=== PATIENT | male | born 1975 | race Caucasian/White ===

== ENCOUNTER 2016-06-27 14:29 | Inpatient (IN) | payer OTHER ==
[~2016-06-27] VITALS: Ht 182.9 cm; Wt 145.2 kg
[~2016-06-27 14:29] MED LIST: FLUOXETINE HCL40 M1 PO; LOSARTAN-HCTZ1 EACH PO; TOPROL XL50 M1 PO
--- NOTE | 2016-06-27 14:47 | ED GENERAL ADULT ---
History of Present Illness General Chief Complaint: General Adult Stated Complaint: BIBA, HEMOPTYSIS Source: patient, old records, EMS Exam Limitations: no limitations Vital Signs & Intake/Output Vital Signs & Intake/Output Vital Signs Date Time Temp Pulse Resp B/P Pulse O2 O2 Flow FiO2 Ox Delivery Rate 06/27 1746 96.5 67 18 90/40 94 Room Air 06/27 1601 96.6 74 18 118/58 96 Room Air 06/27 1514 64 18 103/47 95 Room Air 06/27 1432 96.0 69 12 94/39 95 Room Air Allergies Coded Allergies: No Known Allergies (03/29/16) Reconcile Medications Fluoxetine HCl 40 MG CAPSULE 1 CAP PO QAM DIRECTED (Reported) Losartan/Hydrochlorothiazide (Losartan-Hctz 100-12.5 MG Tab) 100 MG-12.5 MG TABLET 1 TAB PO DAILY DIRECTED (Reported) Metoprolol Succ XL (Toprol Xl) 50 MG TAB 1 TAB PO DAILY BP (Reported) Triage Note: PT TO ROOM5 BIBA FROM HOME FOR JAUNDICE, BRIGHT RED BLOOD IN STOOL, INTERMITTENT NAUSEA, VOMITING BLOOD [id number]. PT ARRIVED AA0x3, WEAK, +JAUNDICE, C/O LOWER ABD PAIN 3/10, ABDOMEN FIRM/DISTENDED, BRUISES TO U/L EXTREMITIES, BILAT LE EDEMA. WRITTEN BY REEMA CHAVEZ PT DENIES CHEST PAIN,SOB. BP 87/58 MUNUALLY. MD ADAM AT BEDSIDE FOR PT EVAL. Triage Nurses Notes Reviewed? yes HPI: PT WAS ADMITTED TO THE ICU LAST NOVEMEBER AFTER HE WAS JAUNDICE SECONDARY TO DRIKING ALCOHOL. HE STOPPED DRINKING AND THE JAUNDICE RESOLVED IN APRIL. HE BEGAN DRINKING AGAIN BUT "NOT MUCH." 3 WEEKS AGO HE NOTICED THAT HE WAS BRUSING VERY EASILY AND HIS LEGS BEGAN TO SWELL. 2 WEEKS AGO, HE BEGAN TO HAVE INTERMITTENT BRBPR. HE STATES THAT SOMETIMES HE WENT AND IT WAS NORMAL AND OTEHR TIMES IT WAS BRB. HE HAS HAD INCREASING WEAKNESS TO THE POINT THAT HE HAS BEEN SLEEPING ON HIS COUCH BECAUSE IT IS CLOSER TO THE BATHROOM. HE NOTICED THAT HE BEGAN TURNING YELLOW AGAIN. TODAY HE BECAME NAUSEOUS AND HAD 1 EPISODE OF BRB VOMITUS. PT CALLED 911 AND WAS BROUGHT IN FOR EVAL. Past History Travel History Traveled to [place] past 21 day No Medical History Any Pertinent Medical History? 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 No Review of Systems Review of Systems Constitutional: Reports: see HPI, weakness. EENTM: Reports: no symptoms. Respiratory: Reports: no symptoms. Cardiovascular: Reports: no symptoms. GI: Reports: see HPI, nausea, bloody stool, vomiting. Genitourinary: Reports: no symptoms. Musculoskeletal: Reports: see HPI. Skin: Reports: see HPI, jaundice. Neurological/Psychological: Reports: no symptoms. Hematologic/Endocrine: Reports: no symptoms. Immunologic/Allergic: Reports: no symptoms. All Other Systems: Reviewed and Negative Physical Exam Physical Exam General Appearance: well developed/nourished, alert, awake, anxious, severe distress Head: atraumatic Eyes: Bilateral: PERRL, EOMI, other (ICTERIC SCERLA). Ears, Nose, Throat: normal pharynx, normal ENT inspection, hearing grossly normal, DRIED BLOOD ON TEETH AND LIPS Neck: normal inspection, supple, full range of motion, JVD Respiratory: normal breath sounds, chest non-tender, no respiratory distress, lungs clear Cardiovascular: regular rate/rhythm, normal peripheral pulses Gastrointestinal: normal bowel sounds, soft, non-tender, +ASCITIES Rectal: BLACK STOOL, HEME POSITIVE Back: normal inspection, normal range of motion Extremities: normal inspection, normal capillary refill, pedal edema Neurologic/Psych: no motor/sensory deficits, awake, alert, oriented x 3, normal mood/affect Skin: jaundice Lymphatic: no anterior cervical regina Core Measures ACS in differential dx? No CVA/TIA Diagnosis: No Severe Sepsis Present: No Septic Shock Present: No Progress Differential Diagnoses I considered the following diagnoses in my evaluation of the patient: [HEAPTIC FAILURE, ASCITIES, SBP, GI BLEED, ESOPHAGEAL VARICIES, ANEMIA, SEPSIS] Plan of Care: Orders Procedure Date/time Status Nothing by Mouth 06/28 B Active CBC WITHOUT DIFFERENTIAL 06/28 2100 Active BASIC ELECTROLYTES PLUS BUN&CR 06/27 2100 Active FRESH FROZEN PLASMA 06/27 1817 Active Pathway - chart 06/27 1736 Active House Staff 06/27 1736 Active Patient Data 06/27 1736 Active Code Status 06/27 1736 Active Patient Data 06/27 1645 Active Admit to inpatient 06/27 1637 Active LEUKOCYTE POOR (PACKED CELLS) 06/27 1629 Active Baum, Insertion/Removal/Asses 06/27 1627 Active CULTURE,URINE 06/27 1627 Active URINE LYTES, SPOT 06/27 1627 Active URINALYSIS 06/27 1446 Active TROPONIN LEVEL 06/27 1446 Complete PARTIAL THROMBOPLASTIN TIME 06/27 1446 Complete PROTHROMBIN TIME 06/27 1446 Complete ETHANOL 06/27 1446 Complete COMPREHENSIVE METABOLIC PANEL 06/27 1446 Complete CBC WITHOUT DIFFERENTIAL 06/27 1446 Complete EKG 06/27 1446 Active TYPE & SCREEN (NOT X-MATCH) 06/27 1446 Active VTE Mechanical Prophylaxis 06/27 UNK Active Current Medications Sig/Vladimir Start time Last Medication Dose Stop Time Status Admin Fluoxetine HCl 40 MG DAILY 06/28 1000 UNVr (Prozac) Hydrochlorothiazide 12.5 MG DAILY 06/28 1000 UNVr (Hydrodiuril) Losartan Potassium 100 MG DAILY 06/28 1000 UNVr (Cozaar) Metoprolol Succinate 50 MG DAILY 06/28 1000 UNVr (Toprol Xl) Trimethobenzamide HCl 200 MG 4 TIMES/DAY PRN 06/27 1815 UNVr (Tigan) Lorazepam 2 MG Q6 06/27 1800 UNVr (Ativan) Lorazepam 0 Q1P PRN 06/27 1745 UNVr (Ativan) Albumin Human 25 GM Q8 06/27 1728 UNVr (Plasbumin) Laboratory Tests 06/27/16 1500: Anion Gap 20 H, Estimated GFR 16 L, BUN/Creatinine Ratio 6.8 L, Glucose 73, Calcium 8.2 L, Total Bilirubin 32.3 H, AST 344 H, ALT 135 H, Alkaline Phosphatase 150 H, Troponin I < 0.01, Total Protein 7.6, Albumin 2.5 L, Globulin 5.1 H, Albumin/Globulin Ratio 0.5 L, PT 48.4 *H, INR 4.68 *H, APTT 79 H, CBC w Diff NO MAN DIFF REQ, RBC 1.67 L, MCV 118.7 H, MCH 41.8 H, RDW 22.6 H, MPV 7.7, Gran % 75.3 H, Lymphocytes % 8.5 L, Monocytes % 15.4 H, Eosinophils % 0.3, Basophils % 0.5, Absolute Granulocytes 11.1 H, Absolute Lymphocytes 1.2, Absolute Monocytes 2.3 H, Absolute Eosinophils 0, Absolute Basophils 0.1, PUBS MCHC 35.2, Serum Alcohol 90.0 Microbiology 06/27 162 URINE ROUT: Urine Culture - ORD Diagnostic Imaging: Viewed by Me: Radiology Read, Ultrasound. Discussed w/RAD: Radiology Read, Ultrasound. Radiology Impression: PATIENT: JULIANNE VELA PRESENT AGE: 41 PATIENT ACCOUNT NO: [id number] : 75 LOCATION: [facility] ORDERING PHYSICIAN: LYNNE MEDINA MD SERVICE DATE: 06/27/16 EXAM TYPE: US - US-RENAL/KIDNEY EXAMINATION: US RETROPERITONEAL COMPLETE (RENAL) CLINICAL INFORMATION: Acute renal failure. Evaluate for hydronephrosis. COMPARISON: CT scan of the abdomen and pelvis dated 03/29/2016. TECHNIQUE: Real- time imaging of the kidneys and bladder. FINDINGS: RIGHT KIDNEY: 11.9 x 6.5 x 7.5 cm (SAG x AP x TRV). The kidney is normal in size, contour, and echogenicity. Renal cortical thickness is normal. No calculi or focal parenchymal lesions. No hydronephrosis. LEFT KIDNEY: 10.7 x 5.8 x 4.7 cm (SAG x AP x TRV). The kidney is suboptimally seen due to patient's body habitus but appears normal in size, contour, and echogenicity. Renal cortical thickness is normal. No calculi or focal parenchymal lesions. No hydronephrosis. BLADDER: Not seen. OTHER: Large volume ascites is now seen in all 4 quadrants of the abdomen. IMPRESSION: 1. Left kidney suboptimally assessed. Overall, both kidneys appear unremarkable. 2. Bladder not seen. 3. Interval development of large volume ascites. DICTATED BY: MARTINA GALVAN,MODESTA [place] DATE/TIME DICTATED:02/25/17 / 1747 GERMINATION WORKER:YASMIN DATE/TIME TRANSCRIBED:06/27/161746 CONFIDENTIAL, DO NOT COPY WITHOUT APPROPRIATE AUTHORIZATION. <Electronically signed in Other Vendor System> SIGNED BY: MODESTA MACK MD 06/27/16 175 CXR Impression: PATIENT: JULIANNE VELA PRESENT AGE : 41 PATIENT ACCOUNT NO: [id number] : 75 LOCATION: [facility] ORDERING PHYSICIAN: LYNNE MEDINA MD SERVICE DATE: 06/27/16 EXAM TYPE: RAD - XRY-PORTABLE CHEST XRAY EXAMINATION: XR PORTABLE CHEST CLINICAL INFORMATION: Shortness of breath. Pneumonia. COMPARISON: CT scan of the abdomen and pelvis dated 03/29/2016. TECHNIQUE: Portable AP view of the chest was obtained. FINDINGS: The cardiomediastinal silhouette is within normal limits in size. Lungs bilaterally are hypoexpanded with bibasilar opacities seen, likely related to subsegmental atelectasis. Slight elevation of the right hemidiaphragm is seen. No pulmonary edema, effusion or pneumothorax is seen. Bony structures are unremarkable. IMPRESSION: Low lung volumes with bibasilar opacities, most likely related to subsegmental atelectasis. Superimposed pneumonia, especially in the right lung base cannot be entirely excluded but is felt to be less likely. Close clinical correlation is requested. DICTATED BY: MODESTA MACK MD DATE/TIME DICTATED:06/27/161531 GERMINATION WORKER:YASMIN DATE/TIME TRANSCRIBED:1531 CONFIDENTIAL, DO NOT COPY WITHOUT APPROPRIATE AUTHORIZATION. < Electronically signed in Other Vendor System> SIGNED BY: MODESTA MACK MD 06/27/16 1540 Initial ED EKG: NSR, nonspecific ST T wave chg Prior EKG: unchanged Rhythm Strip: normal sinus rhythm Comments: D/W DR. RANDOLPH D/W DR. FRANCIS D/W DR. CHOPRA PT VOMITED ONCE AND IT WAS COFFEE GROUNDS, NO BRB Departure Departure Disposition: STILL A PATIENT Condition: Critical Clinical Impression Primary Impression: Hepatic failure Secondary Impressions: Acute renal failure, Anemia, Ascites Referrals: [facility] (PCP/Family) Departure Forms: Customer Survey General Discharge Information Admission Note Spoke With: LING CLINTON MD Documentation of Exam: Documentation of any treatments & extenuating circumstances including Concerns Regarding Discharge (functional status, medication knowledge or non-compliance, living conditions, etc.) that warrant an admission rather than observation: [ICU ADMISSION, GI CONSULT, CRITICAL CARE CONSULT, RENAL CONULT, OCTREOTIDE, PROTONIX , ALBUMIN, ROCEPHIN,] Critical Care Note Critical Care Note Critical Care Time: mins: (75 MIN)
[2016-06-27 15:19] LABS: WHITE BLOOD CELL COUNT 14.7 /CUMM (4.8-10.8)
[2016-06-27 15:21] LABS: ABSOLUTE BASOPHIL COUNT 0.1 /CUMM (0.0-0.2); ABSOLUTE EOSINOPHIL COUNT 0 /CUMM (0.0-0.7); ABSOLUTE GRANULOCYTE CT 11.1 /CUMM (1.4-6.5); ABSOLUTE LYMPH COUNT 1.2 /CUMM (1.2-3.4); ABSOLUTE MONOCYTE COUNT 2.3 /CUMM (0.10-0.60); BASOPHIL % 0.5 % (0.0-2.0); EOSINOPHIL % 0.3 % (0-5); GRANULOCYTE % 75.3 % (42.2-75.2); MEAN CORPUSCULAR HGB 41.8 PG (27.0-31.0); MEAN CORPUSCULAR HGB CONC 35.2 G/DL (33.0-37.0); MEAN CORPUSCULAR VOLUME 118.7 FL (80.0-94.0); MEAN PLATELET VOLUME 7.7 FL (7.4-10.4); PLATELET COUNT 162 /CUMM (130-400); RBC DISTRIBUTION WIDTH 22.6 % (11.5-14.5); RED BLOOD CELL CT 1.67 /CUMM (4.70-6.10)
[2016-06-27 15:24] LABS: PTT 79 SEC (25-37)
[2016-06-27 15:28] LABS: HEMATOCRIT 19.8 % (42-52); PT 48.4 SEC (9.4-12.5)
--- NOTE | 2016-06-27 15:40 | RADIOLOGY REPORT ---
EXAMINATION: XR PORTABLE CHEST CLINICAL INFORMATION: Shortness of breath. Pneumonia. COMPARISON: CT scan of the abdomen and pelvis dated 03/29/2016. TECHNIQUE: Portable AP view of the chest was obtained. FINDINGS: The cardiomediastinal silhouette is within normal limits in size. Lungs bilaterally are hypoexpanded with bibasilar opacities seen, likely related to subsegmental atelectasis. Slight elevation of the right hemidiaphragm is seen. No pulmonary edema, effusion or pneumothorax is seen. Bony structures are unremarkable. IMPRESSION: Low lung volumes with bibasilar opacities, most likely related to subsegmental atelectasis. Superimposed pneumonia, especially in the right lung base cannot be entirely excluded but is felt to be less likely. Close clinical correlation is requested.
--- NOTE | 2016-06-27 17:01 | Cons- Gastroenterology ---
General Information and HPI Consulting Request Date of Consult: 06/27/16 Requested By: LING CLINTON MD Reason for Consult: I was called by the [facility] on behalf of the hospitalist service, to assess jaundice and coffee ground vomitus, in a patient with alcohol abuse. At the time I was notified, the patient had just entered the ER and labs had not yet been sent. Source of Information: patient, old records Exam Limitations: fair historian History of Present Illness: 41 y/o male, HTN/obese, with long history of alcohol abuse x 20 years, last admitted to [facility] 03/29/2016 to 03/31/2016, with alcoholic hepatitis and questionable pancreatitis, with elevated lipase and findings suggestive of this on a noncontrast CT then, however the patient had no abdominal pain, just nausea, vomiting, and diarrhea, which resolved. He also had acute renal failure then, which normalized after IV fluids at that time. He was seen by Dr. Cueva in covering GI consultation on 03/29/2016. The patient was discharged prior to being seen by our GI service, with instructions for outpatient GI follow-up & an elective EGD, which the patient did not comply with. He resumed drinking alcohol after abstaining for 1 month after discharge, up to 2.5L wine daily and/or occasional vodka. He denied cigarette smoking or illicit drugs. He arrived at the [facility] 06/27/2016 at 2:29 PM, BIBA from home with jaundice & fatigue x 2 weeks. He was A & Ox3 upon arrival, with initial BP 94/39, P 69, R 12, T 96, O2 sat RA 95%. Apparently, he had intermittent coffee ground vomitus for the past weeks, with intermittent nausea and vomiting x 2 weeks. There was no bright red blood in the emesis. Today, 06/27/2016, he had scant coffee ground vomitus at home for the first time, which he repeatedx 1 in the ER. He also had intermittent small amounts of BRBPR mixed with his stool over the past 2 weeks, without any spontaneous lower GI bleeding. At times, his stools were intermittently both brown & dark. He denied any light stool. His urine was slightly dark. He had mild pruritus. He denied any trauma, but had multiple bruises over his extremities and torso. He may have had some slight confusion recently, but denied any head trauma. He denied any fevers or chills. He had no symptoms of UTI or URI. The patient noted increased peripheral edema and abdominal distention. He denied any chest pain or shortness of breath. The patient denied any family history of GI malignancy, GI disease, or inherited liver disease. His father is a recovering alcoholic. The patient denied any Tylenol use. He had been on diuretics for his HTN, which were stopped at the time of his [place] 03/29/2016 admission, in the setting of ARF then, which resolved. His Metoprolol 50 mg daily was continued. The patient denied any Tylenol use or herbal medications. He did use a small amount of aspirin for the past few weeks PT. He denied any NSAID use, except for a couple of tablets a few weeks [employer]IATE. He denied any previous transfusions, tattoos, needle sticks, IVDA, or viral hepatitis. He admitted to a history of DTs and alcohol withdrawal, but denied any alcohol related seizures. His abdominal distention is new. He noted some occasional B/L lower quadrant discomfort, "3 out of 10," that seemed to be related to streching from his ascites. He denied any previous history of ascites or SBP. 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 He has never had an EGD or colonoscopy [employer]IATE. There is no history of PUD. He denied any retching or dry heaves. He noted some minimal early satiety. There was no weight loss. His appetite was fair. His weight was without change, despite the peripheral edema and ascites. The patient denied any odynophagia, dysphagia, or GERD. He noted some loose stools over the past week, without any constipation, obstipation, or tenesmus. The patient is depressed & on Prozac, but denied any SI or HI. The patient claims he last drank EtOH 06/26/2016 at 11:00 p.m. I advised the ER to empirically start the patient on Octreotide 50 mcg IV bolus, followed by Octreotide 50 mcg/hr IV drip; Protonix 80 mg IV bolus, followed by Protonix 8 mg/hr IV drip (possibly overkill, but will do this until varices are excluded), Ceftiaxone 1g IVPB, IV NS x 1L, Vitamin K & Zofran. *The patient was subsequently found to have markedly elevated LFTs and ARF, with anemia & coagulopathy. He had dark brownish black stool in the ER on digital exam per Dr. Moe, grossly OB-positive, without fresh BRB. On my repeat digital rectal exam in the ER, on 06/27/2016, the patient had brown stool, OB positive. 03/29/2016: CT ABDOMEN AND PELVIS WITHOUT CONTRAST- 1. Hydropic gallbladder with layering sludge. No evidence of acute gallbladder inflammation or biliary obstruction. CBD 5 mm. 2. Nonspecific finding of mild haziness in the retroperitoneum, seen in the peripancreatic region and extending inferiorly into the right lateral conal fascia with associated multiple tiny lymph nodes and mild vascular hyperemia. In the correct clinical setting, findings may reflect mild acute pancreatitis (*the patient had an elevated lipase then). 3. Hepatosplenomegaly. 4. Small fat-containing umbilical hernia. 03/29/2016: Hep A Ab, Hep B s Ag, Hep C Ab, & Hep B core Ab- all negative; [ Tylenol] < 10. 03/31/2016: PT 18.9, INR 1.79, WBC 7.9, H/H 10.3/30.8, MCV 113.1, RDW 17.5, PLT 123, BUN/Cr 24/0.9, GFR > 60, alb 3.1, TBil 8.0/DBil 4.8, AST 117, CHANTELLE 139 06/27/2016: Admission labs- WBC 14.7 (75% gran/11 gran Ab), H/H 7.0/19.8, MCV 118.7, PLT 162, PT 48.4, INR 4.68, PTT 79, glu 73, BUN/Cr 28/4.1, GFR 16, Na 129 , K 4.1, HCO3 12, AG 20, Ca 8.2, alb 2.5, glob 5.1, TBil 32.3 (without fractionation), alk phos 150, AST 344, ALT 135, troponin < .01, [EtOH] 90, U/A- pending. 06/27/2016: *Markedly elevated discriminant function on admission by the Maddrey formula (*199.740), however, the patient is not a candidate for Prednisolone or Trental with possible SBP (await diagnostic abdominal tap) and with GI bleed. [ This therapy seems to have fallen out of favor, anyway]. 06/27/2016: *Admission MELD- *[place] 50/UNOS 50 06/27/2016: EKG- NSR @ 67, normal axis, normal intervals, NSST inferiorly. 06/27/2016: XR PORTABLE CHEST- Low lung volumes with bibasilar opacities, most likely related to subsegmental atelectasis. Superimposed pneumonia, especially in the right lung base cannot be entirely excluded but is felt to be less likely. Close clinical correlation is requested. 06/27/2016: US RETROPERITONEAL COMPLETE (RENAL)- 1. Left kidney suboptimally assessed. Overall, both kidneys appear unremarkable. 2. Bladder not seen. 3. Interval development of large volume ascites. (*? Liver & GB not imaged) Allergies/Medications Allergies: Coded Allergies: No Known Allergies (03/29/16) Home Med List: Fluoxetine HCl 40 MG CAPSULE 1 CAP PO QAM DIRECTED (Reported) Losartan/Hydrochlorothiazide (Losartan-Hctz 100-12.5 MG Tab) 100 MG-12.5 MG TABLET 1 TAB PO DAILY DIRECTED (Reported) Metoprolol Succ XL (Toprol Xl) 50 MG TAB 1 TAB PO DAILY BP (Reported) Current Medications: Current Medications Sig/Vladimir Start time Last Medication Dose Route Stop Time Status Admin Albumin Human 25 GM Q8 06/27 1728 AC IV Albumin Human 12.5 GM ONCE ONE 06/27 1630 DC 06/27 IV 06/27 1631 1740 Ceftriaxone Sodium 0 .STK-MED ONE 06/27 1601 DC .ROUTE Ceftriaxone Sodium 1,000 MG ONCE ONE 06/27 1515 DC 06/27 IV 06/27 1516 1615 Fluoxetine HCl 40 MG DAILY 06/28 1000 AC PO Hydrochlorothiazide 12.5 MG DAILY 06/28 1000 AC PO Lidocaine/Epinephrine 0 .STK-MED ONE 06/27 1837 DC .ROUTE Lorazepam 2 MG Q6 06/27 1800 AC PO Lorazepam 0 Q1P PRN 06/27 1745 AC IV Losartan Potassium 100 MG DAILY 06/28 1000 AC PO Metoprolol Succinate 50 MG DAILY 06/28 1000 CANr PO Octreotide Acetate 50 MCG ONCE ONE 06/27 1445 DC 06/27 IV 06/27 1446 1545 Octreotide Acetate 500 MCG Q10H 06/27 1445 AC 06/27 Dextrose/Water 500 ML IV 1545 Ondansetron HCl 4 MG ONCE ONE 06/27 1600 DC 06/27 IV 06/27 1601 1600 Ondansetron HCl 0 .STK-MED ONE 06/27 1600 DC .ROUTE Pantoprazole Sodium 0 .STK-MED ONE 06/27 1630 DC IV Pantoprazole Sodium 0 .STK-MED ONE 06/27 1509 DC IV Pantoprazole Sodium 80 MG ONCE ONE 06/27 1445 DC 06/27 IV 06/27 1446 1513 Pantoprazole Sodium 40 MG Q5H 06/27 1445 AC 06/27 Sodium Chloride 100 ML IV 1545 Phytonadione 0 .STK-MED ONE 06/27 1630 DC .ROUTE Phytonadione 10 MG ONCE ONE 06/27 1545 DC 06/27 SC 06/27 1546 1630 Sodium Chloride 1,000 ML BOLUS ONE 06/27 1630 DC 06/27 IV 06/27 1729 1740 Sodium Chloride 1,000 ML BOLUS ONE 06/27 1445 DC 06/27 IV 06/27 1544 1440 Trimethobenzamide HCl 200 MG 4 TIMES/DAY PRN 06/27 1815 AC IM Past History Travel History Traveled to [place] past 21 day No Medical History Blood Transfusion Hx: No Neurological: NONE EENT: NONE Cardiovascular: hypertension Respiratory: NONE Gastrointestinal: pancreatitis (possibly in 03/2016), umbilical hernia, NAUSEA AND VOMITIMG Hepatic: jaundice, ?ELEVATED LIVER ENZYMES Renal: resolved ARF in 03/2016, after hydration Musculoskeletal: NONE Psychiatric: alcohol dependence, depression Endocrine: obesity Blood Disorders: anemia, coagulopathy, thrombocytopenia (borderline) Cancer(s): NONE 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 Age 59. MOTHER, Age 58. Psychosocial History Where Do You Live? Home (with ex- & stepson) Who Do You Live With? ex- & stepson Services at Home: None Primary Language: Persian Smoking Status: Never Smoked ETOH Use: alcoholic Illicit Drug Use: denies illicit drug use Living Will? no Power of Graphic Specialist/HCP? no Other Social History: . Lives with ex- & stepson. No biologic children. No cigarettes. No illicit drugs. EtOH abuse x 20 years, recently up to 2.5L wine daily, with occasional vodka. No IVDA. No tattoos. Unemployed. 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 Functional Ability ADLs Independent: dressing, eating, toileting, bathing. Ambulation: independent IADLs Independent: shopping, housework, finances, food prep, telephone, transportation , medication admin. 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 Review of Systems Review of Systems: Full 14 point review of systems otherwise noncontributory, and as above. Review of Systems Constitutional: Reports: weakness. Denies: chills, diaphoresis, fever, malaise, unexplained weight loss. EENTM: Reports: icterus. Denies: blurred vision, double vision, visual changes, eye pain, eye drainage, eye tearing, ear discharge, ear pain, ear redness, hearing changes, nasal congestion, epistaxis, nasal pain, throat pain, throat swelling, mouth pain, tooth pain. Cardiovascular: Reports: edema, peripheral edema. Denies: chest pain, orthopena, palpitations, syncope. Respiratory: Reports: short of breath (mild QUEZADA). Denies: cough, hemoptysis, orthopnea, sputum production, stridor, wheezing. GI: Reports: abdominal pain (mild B/L lower quadrant), bloating, distention, melena (possible), nausea, bloody stool (scant BRBPR post defecation), vomiting. Denies: constipation, diarrhea, bowel incontinence, changes in stool, steatorrhea. Genitourinary: Denies: discharge, dysuria, frequency, hematuria, hesitation, nocturia, pain, urgency. Musculoskeletal: Denies: back pain, gout, joint pain, joint swelling, muscle pain, muscle stiffness, neck pain. Skin: Reports: change in skin color (jaundice), jaundice. Denies: cysts, change in hair/nails, dryness, erythema, lesions, lymphangitis, lumps, moles, rash. Neurological/Psychological: Reports: confusion (minimal), depressed, emotional problems, weakness. Denies: anxiety, ataxia, cognitive dysfunction, dementia, headache, numbness, paresthesia, pre-existing deficit, petit mal seizures, tingling, tremors, tonic- clonic seizures, unable to move lower ext, unable to move upper ext. Hematologic/Endocrine: Reports: bruising. Denies: bleeding, polyuria, polydipsia. Immunologic/Allergic: Denies: splenectomy, HIV/AIDS, lymphadenopathy. All Other Systems: Reviewed and Negative Exam & Diagnostic Data Vital Signs and I&O Vital Signs Date Time Temp Pulse Resp B/P Pulse O2 O2 Flow FiO2 Ox Delivery Rate 06/27 1601 96.6 74 18 118/58 96 Room Air 06/27 1514 64 18 103/47 95 Room Air 06/27 1432 96.0 69 12 94/39 95 Room Air Intake & Output 06/27 1600 06/27 0400 06/26 1600 06/26 0400 06/25 1600 06/25 040 Intake Total Output Total Balance Patient 325 lb Weight Physical Exam: Well-developed, chronically ill appearing, yellow, obese male, in no apparent distress. Sclera icteric. Conjunctiva slightly pale. Oropharynx clear. Scant amount of dried coffee ground material on teeth. There is no adenopathy, thyromegaly, or JVD. No peripheral stigmata of inflammatory bowel disease on exam. Few faint spiders on the anterior chest wall. No gynecomastia. No CVA tenderness. Lungs: clear to A&P, with slight decreased breath sounds at the bases B/L. Heart exam: regular rate rhythm, S1 and S2, with soft I/ flow murmur. Abdominal exam: normal bowel sounds, obese belly, moderately distended, nontender, without guarding or rebound. Small reducible umbilical hernia, otherwise, no mass. Liver approximately 20 cm by percussion with ? palpable spleen tip. Positive fluid shift. No pulsatile mass. No epigastric bruit. Digital rectal exam: repeated by myself in the ER 06/27/2016: brown stool, OB- positive, without fresh BRB or melena. Normal sphincter tone. No mass. Smooth prostate. No nodule. No external hemorrhoids. No fissure. Extremities: without cyanosis or clubbing. 2+ pitting edema of the LE B/L. No palpable cords. Borderline palmar erythema. No Dupuytren's contractures. Distal pulses 1 + bilaterally. DTRs 2+ bilaterally. CN intact. Alert and oriented x 3. Motor 5 /5 B/L. No tremor. ? Mild asterixis. Results Pertinent Lab Results: Laboratory Tests 06/27 06/27 06/27 1854 1854 1500 Chemistry Sodium (137 - 145 mmol/L) 129 L Potassium (3.5 - 5.1 mmol/L) 4.1 Chloride (98 - 107 mmol/L) 97 L Carbon Dioxide (22 - 30 mmol/L) 12 L Anion Gap (5 - 16) 20 H BUN (9 - 20 mg/dL) 28 H Creatinine (0.7 - 1.2 mg/dL) 4.1 H Estimated GFR (>60 ml/min) 16 L BUN/Creatinine Ratio (7 - 25 %) 6.8 L Glucose (65 - 99 mg/dL) 73 Calcium (8.4 - 10.2 mg/dL) 8.2 L Iron (49 - 181 ug/dL) Pending TIBC (261 - 462 ug/dL) Pending Ferritin (17.9 - 464 ng/mL) Pending Total Bilirubin (0.2 - 1.3 mg/dL) 32.3 H AST (17 - 59 U/L) 344 H ALT (21 - 72 U/L) 135 H Alkaline Phosphatase (< 127 U/L) 150 H Lactate Dehydrogenase (313 - 618 U/L) Pending Troponin I (<0.11 ng/ml) < 0.01 Total Protein (6.3 - 8.2 g/dL) 7.6 Albumin (3.5 - 5.0 g/dL) 2.5 L Globulin (1.9 - 4.2 gm/dL) 5.1 H Albumin/Globulin Ratio (1.1 - 2.2 %) 0.5 L Vitamin B12 (239 - 931 pg/mL) Pending Folate (2.76 - 20.0 ng/mL) Pending TSH (0.270 - 4.200 uIU/mL) Pending Coagulation PT (9.4 - 12.5 SEC) 48.4 *H INR (0.90 - 1.17) 4.68 *H APTT (25 - 37 SEC) 79 H Hematology CBC w Diff NO MAN DIFF REQ WBC (4.8 - 10.8 /CUMM) 14.7 H RBC (4.70 - 6.10 /CUMM) 1.67 L Hgb (14.0 - 18.0 G/DL) 7.0 *L Hct (42 - 52 %) 19.8 *L MCV (80.0 - 94.0 FL) 118.7 H MCH (27.0 - 31.0 PG) 41.8 H RDW (11.5 - 14.5 %) 22.6 H Plt Count (130 - 400 /CUMM) 162 MPV (7.4 - 10.4 FL) 7.7 Gran % (42.2 - 75.2 %) 75.3 H Lymphocytes % (20.5 - 51.1 %) 8.5 L Monocytes % (1.7 - 9.3 %) 15.4 H Eosinophils % (0 - 5 %) 0.3 Basophils % (0.0 - 2.0 %) 0.5 Absolute Granulocytes (1.4 - 6.5 /CUMM) 11.1 H Absolute Lymphocytes (1.2 - 3.4 /CUMM) 1.2 Absolute Monocytes (0.10 - 0.60 /CUMM) 2.3 H Absolute Eosinophils (0.0 - 0.7 /CUMM) 0 Absolute Basophils (0.0 - 0.2 /CUMM) 0.1 PUBS MCHC (33.0 - 37.0 G/DL) 35.2 Other Body Source Fluid WBC Pending Fld Total RBCs Counted Pending Fluid Glucose (mg/dL) 71 Fluid Total Protein (g/dL) < 2.0 Fluid Albumin (g/dL) < 1.0 Fluid LDH (U/L) 427 Fluid Amylase (U/L) < 30 Serology HIV 1&2 Ab Western Blot (NONREACTIVE) Pending Toxicology Serum Alcohol (<10 MG/DL) 90.0 Imaging/Other Studies: 06/27/2016: EKG- NSR @ 67, normal axis, normal intervals, NSST inferiorly. 06/27/2016: XR PORTABLE CHEST- Low lung volumes with bibasilar opacities, most likely related to subsegmental atelectasis. Superimposed pneumonia, especially in the right lung base cannot be entirely excluded but is felt to be less likely. Close clinical correlation is requested. 06/27/2016: US RETROPERITONEAL COMPLETE (RENAL)- 1. Left kidney suboptimally assessed. Overall, both kidneys appear unremarkable. 2. Bladder not seen. 3. Interval development of large volume ascites. (*? Liver & GB not imaged) Assessment/Plan Assessment/Recommendations: 41 y/o male, HTN/obese, with long history of alcohol abuse x 20 years, last admitted to [facility] 03/29/2016 to 03/31/2016, with alcoholic hepatitis and questionable pancreatitis, with elevated lipase and findings suggestive of this on a noncontrast CT then, however the patient had no abdominal pain, just nausea, vomiting, and diarrhea, which resolved. He also had acute renal failure then, which normalized after IV fluids at that time. He was seen by Dr. Cueva in covering GI consultation on 03/29/2016. The patient was discharged prior to being seen by our GI service, with instructions for outpatient GI follow-up & an elective EGD, which the patient did not comply with. He resumed drinking alcohol after abstaining for 1 month after discharge, up to 2.5L wine daily and/or occasional vodka. He denied cigarette smoking or illicit drugs. He arrived at the [place] ER 06/27/2016 at 2:29 PM, BIBA from home with jaundice & fatigue x 2 weeks. He was A & Ox3 upon arrival, with initial BP 94/39, P 69, R 12, T 96, O2 sat RA 95%. Apparently, he had intermittent coffee ground vomitus for the past weeks, with intermittent nausea and vomiting x 2 weeks. There was no bright red blood in the emesis. Today, 06/27/2016, he had scant coffee ground vomitus at home for the first time, which he repeatedx 1 in the ER. He also had intermittent small amounts of BRBPR mixed with his stool over the past 2 weeks, without any spontaneous lower GI bleeding. At times, his stools were intermittently both brown & dark. He denied any light stool. His urine was slightly dark. He had mild pruritus. He denied any trauma, but had multiple bruises over his extremities and torso. He may have had some slight confusion recently, but denied any head trauma. He denied any fevers or chills. He had no symptoms of UTI or URI. The patient noted increased peripheral edema and abdominal distention. He denied any chest pain or shortness of breath. The patient denied any family history of GI malignancy, GI disease, or inherited liver disease. His father is a recovering alcoholic. The patient denied any Tylenol use. He had been on diuretics for his HTN, which were stopped at the time of his [place] 03/29/2016 admission, in the setting of ARF then, which resolved. His Metoprolol 50 mg daily was continued. The patient denied any Tylenol use or herbal medications. He did use a small amount of aspirin for the past few weeks PT. He denied any NSAID use, except for a couple of tablets a few weeks [employer]IATE. He denied any previous transfusions, tattoos, needle sticks, IVDA, or viral hepatitis. He admitted to a history of DTs and alcohol withdrawal, but denied any alcohol related seizures. His abdominal distention is new. He noted some occasional B/L lower quadrant discomfort, "3 out of 10," that seemed to be related to streching from his ascites. He denied any previous history of ascites or SBP. 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 He has never had an EGD or colonoscopy [employer] ASS[employer]IATE. There is no history of PUD. He denied any retching or dry heaves. He noted some minimal early satiety. There was no weight loss. His appetite was fair. His weight was without change, despite the peripheral edema and ascites. The patient denied any odynophagia, dysphagia, or GERD. He noted some loose stools over the past week, without any constipation, obstipation, or tenesmus. The patient is depressed & on Prozac, but denied any SI or HI. The patient claims he last drank EtOH 06/26/2016 at 11:00 p.m. I advised the ER to empirically start the patient on Octreotide 50 mcg IV bolus, followed by Octreotide 50 mcg/hr IV drip; Protonix 80 mg IV bolus, followed by Protonix 8 mg/hr IV drip (possibly overkill, but will do this until varices are excluded), Ceftiaxone 1g IVPB, IV NS x 1L, Vitamin K & Zofran. *The patient was subsequently found to have markedly elevated LFTs and ARF, with anemia & coagulopathy. He had dark brownish black stool in the ER on digital exam per Dr. Moe, grossly OB-positive, without fresh BRB. On my repeat digital rectal exam in the ER, on 06/27/2016, the patient had brown stool, OB positive. 03/29/2016: CT ABDOMEN AND PELVIS WITHOUT CONTRAST- 1. Hydropic gallbladder with layering sludge. No evidence of acute gallbladder inflammation or biliary obstruction. CBD 5 mm. 2. Nonspecific finding of mild haziness in the retroperitoneum, seen in the peripancreatic region and extending inferiorly into the right lateral conal fascia with associated multiple tiny lymph nodes and mild vascular hyperemia. In the correct clinical setting, findings may reflect mild acute pancreatitis (*the patient had an elevated lipase then). 3. Hepatosplenomegaly. 4. Small fat-containing umbilical hernia. 03/29/2016: Hep A Ab, Hep B s Ag, Hep C Ab, & Hep B core Ab- all negative; [ Tylenol] < 10. 03/31/2016: PT 18.9, INR 1.79, WBC 7.9, H/H 10.3/30.8, MCV 113.1, RDW 17.5, PLT 123, BUN/Cr 24/0.9, GFR > 60, alb 3.1, TBil 8.0/DBil 4.8, AST 117, CHANTELLE 139 06/27/2016: Admission labs- WBC 14.7 (75% gran/11 gran Ab), H/H 7.0/19.8, MCV 118.7, PLT 162, PT 48.4, INR 4.68, PTT 79, glu 73, BUN/Cr 28/4.1, GFR 16, Na 129 , K 4.1, HCO3 12, AG 20, Ca 8.2, alb 2.5, glob 5.1, TBil 32.3 (without fractionation), alk phos 150, AST 344, ALT 135, troponin < .01, [EtOH] 90, U/A- pending. 06/27/2016: *Markedly elevated discriminant function on admission by the Maddrey formula (*199.740), however, the patient is not a candidate for Prednisolone or Trental with possible SBP (await diagnostic abdominal tap) and with GI bleed. [ This therapy seems to have fallen out of favor, anyway]. 06/27/2016: *Admission MELD- *[place] 50/UNOS 50 06/27/2016: EKG- NSR @ 67, normal axis, normal intervals, NSST inferiorly. 06/27/2016: XR PORTABLE CHEST- Low lung volumes with bibasilar opacities, most likely related to subsegmental atelectasis. Superimposed pneumonia, especially in the right lung base cannot be entirely excluded but is felt to be less likely. Close clinical correlation is requested. 06/27/2016: US RETROPERITONEAL COMPLETE (RENAL)- 1. Left kidney suboptimally assessed. Overall, both kidneys appear unremarkable. 2. Bladder not seen. 3. Interval development of large volume ascites. (*? Liver & GB not imaged) *The patient has a markedly elevated MELD & positive discriminant function. He is not a candidate for Prednisolone or Trental, especially with a GI bleed, although I do not think the GI bleed is the major issue at the moment. He currently is not actively bleeding and needs stabilization. He is in acute renal failure, along with liver failure. He has alcoholic hepatitis superimposed on probable cirrhosis. Differential diagnosis for the upper GI bleed includes variceal vs. non-variceal sources (i.e.- PUD/GERD/MWT/Dieulafoy/ angiodysplasia > neoplasm), and he is being covered with both IV Octreoide and IV Protonix drips for the time being. With regards to the ARF, there is no hydronephrosis on the ultrasound, although radiology did not get imaging studies of the liver and gallbladder. Possibilities for the arthritic include prerenal vs. HRS > ATN. 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 The patient is A & Ox3, but may have some early asterixis. *SUGGEST: NPO. Continue empiric IV Octreotide & IV Protonix drips. Zofran as needed. * Admit to ICU. *Abdominal sono to be extended to include RUQ. Panculture. * Diagnostic abdominal tap (*send ascitic fluid for gram stain, cell count, culture [place in BC bottles to increase yield], BF protein, BF albumin [to calculate SAAG- expect low protein, high SAAG], & cytology). *Empiric IV Ceftriaxone 1g daily for now (to cover potential SBP & also for prophylaxis if potential varices need to be banded). Fractionate bilirubin. With asterixis, would check NH3 & if needed, may start Rifaximin with sip of H2O (vs. Lactulose enema). Banana bag with MVI/thiamine/folate. Serial CIWA. Ativan as needed. Watch for impending DTs. *Check urine lytes (if low Janeth < 10 or low FENa < 1, ? prerenal vs. HRS; if elevated Janeth/FeNa, ? ATN). Advise renal consult prior to committing patient to Midodrine. SPA 25g IVPB Q8h for now to increase oncotic pressure & hopefully improve GFR. Vitamin K 10 mg sc daily x 3 days. Keep Hgb > 7- would empirically transfuse 1u PRBC tonight, but do not "overinflate," in case of potential varices. IV NS @ 100 cc/hr for now (will worsen ascites, but kidneys need a fluid challenge). 2u FFP tonight, after PRBC given. Close follow -up electrolytes, GFR, LFTs, CBC, INR. No NSAIDs. *Consideration for EGD on after stabilization, depending on clinical course. *Please call GI if patient actively bleeds. Consideration for outpatient colonoscopy after stabilization. Add B12, RBC folate, Fe, TIBC, ferritin to pre-transfusion labs. Check TFT with TSHR & HIV. Consideration for repeating Hep A Ab, Hep Bs Ag, Hep B core Ab, Hep C Ab (& Hep BsAb) serologies. (KAYE, AMA & ceruloplasmin are probably of low yield). If not immune, advise semi-elective outpatient Hep A & B vaccinations, along with annual flu shot and Pneumovax, if applicable. Avoid NSAIDs, avoid hepatotoxins, & keep Tylenol use to a minimum. *Hold Metoprolol for now, with consideration for a non-selective Beta remy, after checking EGD. *Hold HCTZ/Losartan for now & follow-up GFR. Social service, psychiatric, & continuing care input. DVT prophylaxis with ALPS (the patient is auto A/C). The patient was made aware that he is critically ill, currently has a high mortality rate, and that if he were not drinking up until admission, there would be consideration for transfer to the [facility] for potential transplant. The above was discussed with the medical house staff in great detail. The patient was given my office number. Assuming the patient is cirrhotic, he should have outpatient hepatoma surveillance with AFP and RUQ sono Q 6 months. 1 & 1/2 hours of ICU care were spent on the patient. Problem List: 1. Alcoholic hepatitis 2. Cirrhosis 3. Acute liver failure 4. Acute renal failure 5. Anemia 6. Upper GI bleed 7. Ascites 8. Umbilical hernia 9. Asterixis Copies To: SILVER NO; OZ GALVAN,LING Castro Consult Acknowledgment - Thank you for your consult request.
--- NOTE | 2016-06-27 17:25 | History & Physical ---
See Addendum CHLOÉ MADRIGAL 06/27/16 9475: General Information and HPI MD Statement: I have seen and personally examined JULIANNE FROST and documented this H&P. The patient is a 41 year old M who presented with a patient stated chief complaint of [LETHARGY, NAUSEA/VOMITING/DARK STOOLS]. Source of Information: patient, old records Exam Limitations: no limitations History of Present Illness: Mr. Frost, is a 41-year-old significant past medical history of hypertension, depression, alcohol abuse with alcoholic hepatitis and pancreatitis, was discharged at the end of March for treatment of alcoholic pancreatitis/ hepatitis presents to the emergency department with complaints of lethargy, nausea and one episode of vomiting dark coffee grounds. He states that he was sober since his last discharge for 1 month, and then started drinking again May 03 secondary to social stressors and he states that he thought he could start drinking again after his jaundice began to resolve. He states he has been drinking wine, approximately 1-1.5L per day, which is down from his previous intake. He states that for the last 2 weeks he was noted that he bruised very easily and he became quite fatigued and dyspneic with little exertion. He states this is progressively worsening he came to the emergency department to seek help. He does admit to feeling nauseated today and having one episode of emesis. He states emesis was dark in color. He also notes dark stools over the last 2 weeks. He denies any bright red blood per rectum or episodes of bright red blood per mouth/hemoptysis. He also complains of significant swelling diffusely over his body. He denies any chest pain, dyspnea, palpitations, lightheadedness, dizziness, diplopia or tinnitus. He also denies any fevers, chills, diaphoresis, or diarrhea. He denies any recent travel or sick contacts. In the emergency department he had another episode of vomiting which was characterized as coffee grounds. His guaiac was positive stools. Initial admission vitals were temperature 90.6, heart rate 69, respiratory rate 12, BP 90/39 which improved to 118/58. NSR at 67bpm. OR 168ms. QTc 532ms. slight T flattening/inversion in III and V1. Labs were significant for sodium 129, potassium 4.1, chloride 97, bicarbonate 12 , BUNs/creatinine 28/4.1. Glucose 73. Anion gap of 20, AST/T3 44/135. Alkaline phosphatase 150. Albumin 2.5. Serum alcohol level was 90. CBC was positive for H&H 7/19.8, white blood cell count 14.7, platelets 162. INR 4.68, PTT 48.4 and PTT 79. Chest significant for low lung volumes with bibasilar opacities, most likely related to subsegmental atelectasis and possible superimposed pneumonia, in the RLL. Of note his last visit, he was had negative HAV IgM, HbsAg, HBc IgM Ab, HCV Ab. Also, CT scan in 03/2016 showed a hepatosplenomegaly and hydropic gallbladder w underlying sludge. Allergies/Medications Allergies: Coded Allergies: No Known Allergies (03/29/16) Home Med list Fluoxetine HCl 40 MG CAPSULE 1 CAP PO QAM DIRECTED (Reported) Losartan/Hydrochlorothiazide (Losartan-Hctz 100-12.5 MG Tab) 100 MG-12.5 MG TABLET 1 TAB PO DAILY DIRECTED (Reported) Metoprolol Succ XL (Toprol Xl) 50 MG TAB 1 TAB PO DAILY BP (Reported) Past History Travel History Traveled to [place] past 21 day No Medical History Neurological: NONE EENT: NONE Cardiovascular: hypertension Respiratory: NONE Gastrointestinal: NAUSEA AND VOMITIMG Hepatic: jaundice, ?ELEVATED LIVER ENZYMES Renal: NONE Musculoskeletal: NONE Psychiatric: alcohol dependence, depression Endocrine: NONE Blood Disorders: NONE Cancer(s): NONE 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 Home Services at Home: None ETOH Use: heavy use Illicit Drug Use: denies illicit drug use Functional Ability ADLs Independent: dressing, eating, toileting, bathing. Review of Systems Review of Systems Constitutional: Reports: see HPI. Exam & Diagnostic Data Last 24 Hrs of Vital Signs/I&O Vital Signs Date Time Temp Pulse Resp B/P Pulse O2 O2 Flow FiO2 Ox Delivery Rate 06/27 1746 96.5 67 18 90/40 94 Room Air 06/27 1601 96.6 74 18 118/58 96 Room Air 06/27 1514 64 18 103/47 95 Room Air 06/27 1432 96.0 69 12 94/39 95 Room Air Intake & Output 06/27 1600 06/27 0800 06/27 0000 Intake Total Output Total Balance Patient 147.418 kg Weight Physical Exam General Appearance Alert, Oriented X3, Cooperative, No Acute Distress Skin clearly diffusely jaundiced palmar errythema spider nevi on the chest and abdomen multiple foci of superficial bruising diffusely HEENT Atraumatic, PERRLA, EOMI, sceral icterus Neck Supple, No JVD Cardiovascular Regular Rate, Normal S1, Normal S2, 1/6 systolic murmur Lungs Clear to Auscultation, Normal Air Movement Abdomen diffusely enlarged and appears fluid filled diffusely dull to percussion with positive fluid wave non tender to palpation liver percussed to approx 3cm below the costal margin - no nodularity noted Neurological Normal Speech, Strength at 5/5 X4 Ext Extremities No Cyanosis, +2 pitting edeam to pelvis Rectal guiac positive dark stool Last 24 Hrs of Labs/Jb: Laboratory Tests 06/27/16 1500: Anion Gap 20 H, Estimated GFR 16 L, BUN/Creatinine Ratio 6.8 L, Glucose 73, Calcium 8.2 L, Total Bilirubin 32.3 H, AST 344 H, ALT 135 H, Alkaline Phosphatase 150 H, Troponin I < 0.01, Total Protein 7.6, Albumin 2.5 L, Globulin 5.1 H, Albumin/Globulin Ratio 0.5 L, PT 48.4 *H, INR 4.68 *H, APTT 79 H, CBC w Diff NO MAN DIFF REQ, RBC 1.67 L, MCV 118.7 H, MCH 41.8 H, RDW 22.6 H, MPV 7.7, Gran % 75.3 H, Lymphocytes % 8.5 L, Monocytes % 15.4 H, Eosinophils % 0.3, Basophils % 0.5, Absolute Granulocytes 11.1 H, Absolute Lymphocytes 1.2, Absolute Monocytes 2.3 H, Absolute Eosinophils 0, Absolute Basophils 0.1, PUBS MCHC 35.2, Serum Alcohol 90.0 Microbiology 06/27 1627 URINE ROUT: Urine Culture - ORD Diagnostic Data EKG Results NSR at 67bpm. OR 168ms. QTc 532ms. slight T flattening/inversion in III and V1 CXR Results SERVICE DATE: 06/27/16-1445 EXAM TYPE: RAD - XRY-PORTABLE CHEST XRAY EXAMINATION: XR PORTABLE CHEST CLINICAL INFORMATION: Shortness of breath. Pneumonia. COMPARISON: CT scan of the abdomen and pelvis dated 03/29/2016. TECHNIQUE: Portable AP view of the chest was obtained. FINDINGS: The cardiomediastinal silhouette is within normal limits in size. Lungs bilaterally are hypoexpanded with bibasilar opacities seen, likely related to subsegmental atelectasis. Slight elevation of the right hemidiaphragm is seen. No pulmonary edema, effusion or pneumothorax is seen. Bony structures are unremarkable. IMPRESSION: Low lung volumes with bibasilar opacities, most likely related to subsegmental atelectasis. Superimposed pneumonia, especially in the right lung base cannot be entirely excluded but is felt to be less likely. Close clinical correlation is requested. Other Results SERVICE DATE: 06/27/16 EXAM TYPE: US - US-RENAL/KIDNEY EXAMINATION: US RETROPERITONEAL COMPLETE (RENAL) CLINICAL INFORMATION: Acute renal failure. Evaluate for hydronephrosis. COMPARISON: CT scan of the abdomen and pelvis dated 03/29/2016. TECHNIQUE: Real-time imaging of the kidneys and bladder. FINDINGS: RIGHT KIDNEY: 11.9 x 6.5 x 7.5 cm (SAG x AP x TRV). The kidney is normal in size, contour, and echogenicity. Renal cortical thickness is normal. No calculi or focal parenchymal lesions. No hydronephrosis. LEFT KIDNEY: 10.7 x 5.8 x 4.7 cm (SAG x AP x TRV). The kidney is suboptimally seen due to patient's body habitus but appears normal in size, contour, and echogenicity. Renal cortical thickness is normal. No calculi or focal parenchymal lesions. No hydronephrosis. BLADDER: Not seen. OTHER: Large volume ascites is now seen in all 4 quadrants of the abdomen. IMPRESSION: 1. Left kidney suboptimally assessed. Overall, both kidneys appear unremarkable. 2. Bladder not seen. 3. Interval development of large volume ascites. Assessment/Plan Assessment: Mr. Frost, is a 41-year-old significant past medical history of hypertension, depression, alcohol abuse with alcoholic hepatitis and pancreatitis, was discharged at the end of March for treatment of alcoholic pancreatitis/ hepatitis presents to the emergency department with complaints of lethargy, nausea and one episode of vomiting dark coffee grounds. Initial admission vitals were temperature 90.6, heart rate 69, respiratory rate 12, BP 90/39 which improved to 118/58. NSR at 67bpm. OR 168ms. QTc 532ms. slight T flattening/inversion in III and V1. Labs were significant for sodium 129, potassium 4.1, chloride 97, bicarbonate 12 , BUNs/creatinine 28/4.1. Glucose 73. Anion gap of 20, AST/T3 44/135. Alkaline phosphatase 150. Albumin 2.5. Serum alcohol level was 90. CBC was positive for H&H 7/19.8, white blood cell count 14.7, platelets 162. INR 4.68, PTT 48.4 and PTT 79. Problem List/Assessment and Plan Hematemasis * Admit to the ICU * Most likely 2/2 to hepatic impairment due to alcohol abuse - ?esophageal varices. * 2 episodes of coffee ground emesis. Second episode approximately 50cc. He is not actively bleeding now. * H&H 7/19.8, platelets 162 and INR 4.68. He was given 10 of VitK SC in the ED. We will also give 2 units of FFP and Vit K 5mg SC daily x3 days * GI consult placed and appreciated - In the ED he recieved an ocreotide bolus ( 50mcg), a Protonix 80 mg IV bolus, and is currently on an Octreotide 50 mcg/hr IV drip and Protonix 8 mg/hr IV drip. * As he is hypoalbuminemic, consider albumin infusion 25g q8h. * Ceftriaxone 1g daily for prophylaxis - we will obtain a diagnostic paracentesis in the ED to evaluate for SBP Alcohol detox * Last drink was yesterday at 11pm. * We will dose ativan per CIWA protocol (q1 PRN per CIWA protocol) * Also, we will give ativan 1mg q6h. Please taper off daily. * We will give 1 banana bag for now. Also, when a diet is restarted, consider a low salt diet. Acute Renal Failure * ?Hepatorenal syndrome but we must r/o obstruction * Renal U/S pending * We will get a UA with Ulytes as well * The albumin 25g q8 will definitely help his renal perfusion * Avoid NSAIDs and nephrotoxins HTN/depression * HOLDING losartan/HCTZ 100-12.5 * Continue fluixetine 40mg daily As the patient has both liver and kidney impairment, a pain pathway will not be ordered as he is not in pain and most analgesics would impair his hepatic or renal function. We will watch for now and reconsider if he develops any pain. Tylenol can be used for fever judiciously. FULL CODE NPO ALPS for DVT ppx Tigan for nausea as this does not increase his QTc As Ranked By This Provider Problem List: 1. Acute liver failure 2. Acute renal failure 3. Elevated INR 4. Lower GI bleed 5. Upper GI bleed Core Measures/Miscellaneous Acute Coronary Syndrome ACS Diagnosis: No Cerebrovascular Accident CVA/TIA Diagnosis: No Congestive Heart Failure CHF Diagnosis: No Venous Thromboembolism VTE Risk Factors: Acute medical illness, Age > 40 VTE Prophylaxis Ordered Inpt: Mechanical (ALPS/TEDS) No Mech VTE prophylaxis d/t: No contraindications No VTE Pharm Prophylaxis d/t: Active bleeding VTE Diagnosis: No VTE Type: NONE VTE Confirmed by (Test): NONE Severe Sepsis Severe Sepsis Present: No Septic Shock Septic Shock Present: No Miscellaneous Documentation Attending Case Discussed With: LING CLINTON MD Primary Care Physician: SILVER NO Patient sees these Specialists GI Level of Patient Care: Critical Care (CRI) LING CLINTON MD 06/28/16 1054: Attending MD Review Statement Attending Statement Attending MD Statement: examined this patient, discuss w/resident/PA/CYLINDER PRESS OPERATOR, agreed w/resident/PA/CYLINDER PRESS OPERATOR, reviewed EMR data (avail), discussed with nursing, discussed with case mgmt, reviewed images Attending Assessment/Plan: See medical breif addendum note dated 06/27/16
--- NOTE | 2016-06-27 17:54 | ULTRASOUND REPORT ---
EXAMINATION: US RETROPERITONEAL COMPLETE (RENAL) CLINICAL INFORMATION: Acute renal failure. Evaluate for hydronephrosis. COMPARISON: CT scan of the abdomen and pelvis dated 03/29/2016. TECHNIQUE: Real-time imaging of the kidneys and bladder. FINDINGS: RIGHT KIDNEY: 11.9 x 6.5 x 7.5 cm (SAG x AP x TRV). The kidney is normal in size, contour, and echogenicity. Renal cortical thickness is normal. No calculi or focal parenchymal lesions. No hydronephrosis. LEFT KIDNEY: 10.7 x 5.8 x 4.7 cm (SAG x AP x TRV). The kidney is suboptimally seen due to patient's body habitus but appears normal in size, contour, and echogenicity. Renal cortical thickness is normal. No calculi or focal parenchymal lesions. No hydronephrosis. BLADDER: Not seen. OTHER: Large volume ascites is now seen in all 4 quadrants of the abdomen. IMPRESSION: 1. Left kidney suboptimally assessed. Overall, both kidneys appear unremarkable. 2. Bladder not seen. 3. Interval development of large volume ascites.
[2016-06-27 19:20] VITALS: BP 100/46
--- NOTE | 2016-06-27 19:28 | PN- Att Addend ---
Attending Addendum Attending Brief Note 41-year-old male past medical history of alcohol dependence, HTN and depression is here with multiple problems all related to alcoholic liver disease with impending hepatic failure and coagulopathy. He is here with severe jaundice with a bilirubin of 32 and an elevated alkaline phosphatase with an elevated transaminitis. In addition he has a coagulopathy, ascites, GI bleed with coffee-ground emesis. He also has cirrhosis as evidenced by synthetic dysfunction and leukocytosis. He has new onset acute renal failure the differential of which is likely hepatorenal versus sepsis versus prerenal and ATN. At this point will bring him in to the ICU. He is going to get IV octreotide IV Protonix and we will watch his CBC every 6 to every 8 hours 8 closely. Restrictive transfusion strategy as the worry is esophageal varices. Give him 1- 2 units of blood slowly and follow-up. GI has already been informed that they'll watch closely for the need for emergent endoscopy. Will try and reverse the coagulopathy with subcutaneous parenteral vitamin K and closely follow the INR. As he is actively bleeding, will also give him 2 units of FFP. For his ?hepatorenal syndrome and his acute renal failure will get a stat UA and urine electrolytes and a renal ultrasound. Make sure he is not obstructed and give him IV albumin. Will need to watch his volume status closely. He saturating okay and hemodynamically stable at this point ,he has ascites. Follow up on the diagnostic paracentesis. The leukocytosis with the ascites is obviously worrisome for SBP ,given the GI bleed he needs IV ceftriaxone prophylactically to cover for that. Give Thiamine, Folate and MVI parentrally as pt is NPO in case he needs an emergent EGD. Give Ativan per CIWA and low dose Ativan while watching his menataion closely. Will watch closely for encephalopathy and follow imminent hepatic failure. TTS with care 45 minutes.
--- NOTE | 2016-06-27 19:29 | Admission Certification ---
Admission Certification Certification Statement - As attending physician, I certify that at the time of - admission, based on clinical presentation, severity of - symptoms, need for further diagnostic testing and - therapeutic interventions, and risk of adverse outcomes - without in-hospital treatment, in my clinical assessment, - this patient requires an acute hospital stay for a minimum - of two nights or longer. I have also considered psychsocial - factors such as support system, advanced age, financial - issues, cognitive issues, and failed out-patient treatments, - past re-admission history, safety of patient, and lack of - compliance as applicable. Specific rationale supporting this admission is: Severe alcoholic liver disease with coagulapthy, jaundice, ascites, GI bleed and renal failure
[2016-06-27 23:16] VITALS: BP 106/46; BP 113/52
[2016-06-28] VITALS (7 sets, daily range): BP systolic 61–101; BP diastolic 39–60
--- NOTE | 2016-06-28 03:43 | Proc Note Internal Medicine ---
Medicine Procedure Procedure Date: 06/28/16 Medical Procedure(s): central venous cath place Pre-Operative Diagnosis: Hypotension Liver failure Post-Operative Diagnosis: same Estimated Blood Loss: less than 50ml Anesthesia: local lidocaine Procedure Findings: Informed consent was obtained from the patient regarding the procedure. Risks and benefits of the procedure were explained extensively, questions were answered, he wished to proceed. First, a timeout was obtained, patient identifying data was checked and verified by members of the team and by myself; after the proper patient and procedure and procedural site was identified, we proceeded. The surgical area was cleaned with chlorhexidine scrub. Patient was draped in sterile fashion. Using ultrasound probe, the right femoral vein was isolated. 5 mL of local 1% lidocaine was used to numb the skin. Using a syringe the right femoral vein was punctured under ultrasound guidance. The syringe was again confirmed by the ultrasound. Over the syringe, guidewire was placed as a syringe was removed. Skin dilator was placed over the guidewire, a small incision was made to advance the dilator. The dilator was then removed. The 3 ports of the central line were flushed to make sure that all 3 ports were working appropriately. Over the guidewire, the central line was placed and advanced. The central line was then secured by 2 anchor sutures. A Biopatch was applied. 3 hubs were applied to the central line and were flushed. A dry sterile Tegaderm was applied. Blood loss was < 15 cc, the patient handled the procedure extremely well. Dr. Aguayo was present during the procedure in its entiriety.
[2016-06-28 05:26] LABS: ABSOLUTE BASOPHIL COUNT 0 /CUMM (0.0-0.2); ABSOLUTE EOSINOPHIL COUNT 0 /CUMM (0.0-0.7); ABSOLUTE GRANULOCYTE CT 8.4 /CUMM (1.4-6.5); BASOPHIL % 0.3 % (0.0-2.0); EOSINOPHIL % 0.1 % (0-5); GRANULOCYTE % 73.6 % (42.2-75.2); MEAN CORPUSCULAR HGB 40.9 PG (27.0-31.0); MEAN CORPUSCULAR HGB CONC 34.9 G/DL (33.0-37.0); MEAN CORPUSCULAR VOLUME 117.2 FL (80.0-94.0); PLATELET COUNT 111 /CUMM (130-400); RBC DISTRIBUTION WIDTH 25.6 % (11.5-14.5)
[2016-06-28 05:55] LABS: PT 46.1 SEC (9.4-12.5)
[2016-06-28 05:56] LABS: HEMATOCRIT 17.5 % (42-52)
[2016-06-28 06:30] LABS: WHITE BLOOD CELL COUNT 11.4 /CUMM (4.8-10.8)
--- NOTE | 2016-06-28 06:34 | RADIOLOGY REPORT ---
EXAMINATION: Single AP view of the right hip CLINICAL INFORMATION: Assess femoral line. COMPARISON: None available. FINDINGS/IMPRESSON: A right femoral approach catheter courses superiorly at the level of the pelvis with its tip not well identified given the technique and rotation utilized for this exam. Consider a dedicated full frontal pelvic radiograph for more definitive assessment of catheter positioning.
[2016-06-28 07:14] LABS: ABSOLUTE EOSINOPHIL COUNT 0 /CUMM (0.0-0.7)
--- NOTE | 2016-06-28 07:14 | Event Note ---
Event Note Event Note: Around 6:13 AM pt had an episode of bradycardia where heart rate went into 30s and then subsequently coded. He successfully retained ROSC after 16 minutes of active code. Initially he was in PEA and subsequently attained a pulse that was identified by both doppler and to palpation. He was given a total 5 atropine and 4 epi in two minute intervals. Pt is intubated and on ventilator; not requiring pressors. Note that pt had hemetemesis after ROSC was obtained. Post-code pupils were fixed and dilated, no babinski, lung and heart clear to auscultation.
[2016-06-28 07:20] LABS: ABSOLUTE BASOPHIL COUNT 0.1 /CUMM (0.0-0.2); MEAN PLATELET VOLUME 7.9 FL (7.4-10.4); RED BLOOD CELL CT 1.67 /CUMM (4.70-6.10)
[2016-06-28 07:35] LABS: ABSOLUTE GRANULOCYTE CT 7.8 /CUMM (1.4-6.5); ABSOLUTE LYMPH COUNT 2.3 /CUMM (1.2-3.4); ABSOLUTE MONOCYTE COUNT 1.5 /CUMM (0.10-0.60); BASOPHIL % 0.5 % (0.0-2.0); EOSINOPHIL % 0.1 % (0-5); GRANULOCYTE % 66.8 % (42.2-75.2); MEAN CORPUSCULAR HGB 41.6 PG (27.0-31.0); MEAN CORPUSCULAR HGB CONC 35.6 G/DL (33.0-37.0); MEAN CORPUSCULAR VOLUME 117.1 FL (80.0-94.0); PLATELET COUNT 122 /CUMM (130-400); RBC DISTRIBUTION WIDTH 26.7 % (11.5-14.5); WHITE BLOOD CELL COUNT 11.7 /CUMM (4.8-10.8)
[2016-06-28 07:37] LABS: HEMATOCRIT 19.5 % (42-52)
--- NOTE | 2016-06-28 08:17 | Cons- CRCU ---
JUAN F GALVAN,[facility] 06/28/16 0816: General Information and HPI Consulting Request Date of Consult: 06/28/16 Requested By: Lyly Young MD Reason for Consult: Hepatic failure Source of Information: family, old records Exam Limitations: unable to give history, not alert/orientated, clinical condition History of Present Illness: Mr. Frost is a 41 y/o M with PMHx of obesity, HTN and long-standing alcohol abuse, recently admitted to [facility] in March 2016 with alcoholic hepatitis and questionable pancreatitis who was BIBA to the ED on 06/27/16 after an episode of coffee-ground emesis, preceded by 2-week history of lethargy, jaundice and nausea/vomiting. Of note, patient had abstained from alcohol for 1 month following his discharge from [facility] but had restarted drinking, consuming up to 2.5 L of wine daily as well as occasional vodka. Of note his last drink was on the night prior to his current presentation. On initial presentation in the ED, his vitals were remarkable for hypotension to 94/39, which later improved after receiving NS bolus. He was AAO x 3 and in no acute distress. Physical exam was remarkable for stigmata of liver disease including jaundice, marked ascites, palmar erythema, spider nevi and bruises. Guaiac positive stool was noted on rectal exam. Labs were significant for H/H 7.0/19.8, WBC 14.7, platelets 162, Na 129, bicarbonate 12, anion gap 20, BUN/Cr 28/4.1, total bilirubin 32.3, AST 344, ALT 135, alkaline phosphatase 150, LDH 1973 and INR 4.68. Serum alcohol was elevated at 90. Gastroenterology was consulted and patient was started on IV octreotide and Protonix drips for suspected upper GI bleed 2/2 to esophageal varices. Diagnostic paracentesis was performed to rule out SBP and patient was subsequently admitted to the ICU for close hemodynamic monitoring in the setting of impending hepatic failure and coagulopathy. Patient received 1 unit of pRBCs, 2 units of FFP and vitamin K overnight with plans for possible EGD following clinical stabilization. However around 6 AM in the morning, patient suddenly became unresponsive with bradycardia and apnea which progressed to cardiopulmonary arrest. ACLS was initiated and patient was intubated and placed on mechanical ventilation. Patient regained ROSC after 16 minutes of active code but remained unresponsive with fixed and dilated pupils post code. Following the code, patient's clinical condition deteriorated rapidly , despite receiving supportive therapy, with multisystem organ failure including hypovolemic shock requiring three pressors, worsening anemia, coagulopathy, acute renal failure, acidosis and severe electrolyte disturbances. After long and extensive discussions with with the medical team, decision was made to extubate the patient after being seen by a director of kids, given his extremely guarded prognosis based on his neurologic exam suggestive of substantial anoxic injury superimposed on his liver and kidney failure. Patient was terminally extubated and was subsequently pronounced at 1:11 PM. Allergies/Medications Allergies: Coded Allergies: No Known Allergies (03/29/16) Home Med List: Fluoxetine HCl 40 MG CAPSULE 1 CAP PO QAM DIRECTED (Reported) Losartan/Hydrochlorothiazide (Losartan-Hctz 100-12.5 MG Tab) 100 MG-12.5 MG TABLET 1 TAB PO DAILY DIRECTED (Reported) Metoprolol Succ XL (Toprol Xl) 50 MG TAB 1 TAB PO DAILY BP (Reported) Current Medications: Current Medications Sig/Vladimir Start time Last Medication Dose Route Stop Time Status Admin Albumin Human 25 GM Q8 06/27 1728 DCD 06/27 IV 2220 Ceftazidime 2,000 MG Q24H 06/28 1100 DCD IV Ceftriaxone Sodium 1,000 MG DAILY@1600 06/28 1600 CAN IV Cyanocobalamin/ 1 BAG ONE ONE 06/27 2000 DC Thiamine/Pyridoxine IV 06/28 0559 Dextrose/Water 1,000 ML Dextrose 25 GM ONCE ONE 06/28 1145 DC IV 06/28 1146 Dextrose 25 GM ONCE ONE 06/28 0830 DC 06/28 IV 06/28 0831 0832 Fluoxetine HCl 40 MG DAILY 06/28 1000 DCD PO Lorazepam 2 MG ONE ONE 06/28 1315 DC 06/28 IV 06/28 1316 1308 Lorazepam 1 MG Q6 06/27 2359 DC 06/28 PO 0039 Lorazepam 0 Q1P PRN 06/27 1745 DCD IV Morphine Sulfate 6 MG ONCE ONE 06/28 1315 DC IV 06/28 1316 Morphine Sulfate 6 MG ONCE ONE 06/28 1245 DC 06/28 IV 06/28 1246 1247 Norepinephrine 4 MG Q24H 06/28 0830 DCD 06/28 Sodium Chloride 250 ML IV 0745 Norepinephrine 4 MG .STK-MED ONE 06/28 0709 DC IV 06/28 0710 Octreotide Acetate 500 MCG Q10H 06/28 0700 DCD 06/28 Dextrose/Water 500 ML IV 0925 Octreotide Acetate 500 MCG Q10H 06/27 1445 DC 06/27 Dextrose/Water 500 ML IV 1545 Pantoprazole Sodium 40 MG BID 06/28 1135 DCD IV Pantoprazole Sodium 40 MG Q5H 06/27 1445 DC 06/28 Sodium Chloride 100 ML IV 0453 Phenylephrine HCl 40 MG Q24H 06/28 0900 DCD 06/28 Sodium Chloride 250 ML IV 0914 Phenylephrine HCl 40 MG .STK-MED ONE 06/28 0805 DC IM 06/28 0806 Phytonadione 5 MG DAILY 06/28 1000 DCD 06/28 SC 06/30 1001 1134 Sodium Bicarbonate 150 MEQ Q6H 06/28 0830 DCD 06/28 Dextrose/Water 1,000 ML IV 0915 Trimethobenzamide HCl 200 MG 4 TIMES/DAY PRN 06/27 1815 DCD IM Vancomycin HCl 1,000 MG ONCE ONE 06/28 0915 DC Dextrose/Water 250 ML IV 06/28 1014 Vasopressin 40 UNITS Q16H 06/28 0830 DCD 06/28 Dextrose/Water 100 ML IV 0820 Past History Travel History Traveled to [place] past 21 day No Medical History Blood Transfusion Hx: No Neurological: NONE EENT: NONE Cardiovascular: hypertension Respiratory: NONE Gastrointestinal: pancreatitis (possibly in 03/2016), umbilical hernia, NAUSEA AND VOMITIMG Hepatic: jaundice, ?ELEVATED LIVER ENZYMES Renal: resolved ARF in 03/2016, after hydration Musculoskeletal: NONE Psychiatric: alcohol dependence, depression Endocrine: obesity Blood Disorders: anemia, coagulopathy, thrombocytopenia (borderline) Cancer(s): NONE DISTRICT WIRE CHIEF/Reproductive: 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 Age 59. MOTHER, Age 58. Psychosocial History Where Do You Live? Home (with ex- & stepson) Who Do You Live With? ex- & stepson Services at Home: None Primary Language: Albanian Smoking Status: Former Smoker ETOH Use: alcoholic Illicit Drug Use: denies illicit drug use Living Will? no Power of Station Operator/HCP? no Other Social History: . Lives with ex- & stepson. No biologic children. No cigarettes. No illicit drugs. EtOH abuse x 20 years, recently up to 2.5L wine daily, with occasional vodka. No IVDA. No tattoos. Unemployed. 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 Functional Ability ADLs Independent: dressing, eating, toileting, bathing. Ambulation: independent IADLs Independent: shopping, housework, finances, food prep, telephone, transportation , medication admin. 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 Exam & Diagnostic Data Last 24 Hrs of Vital Signs/I&O Vital Signs Date Time Temp Pulse Resp B/P Pulse O2 O2 Flow FiO2 Ox Delivery Rate 06/28 1200 93.7 86 18 61/42 06/28 1000 93.9 90 18 61/47 06/28 0910 100 06/28 0800 95.1 96 18 79/43 06/28 0800 95.1 96 18 43 98 Ventilator 100% 06/28 0800 98 Ventilator 100% 06/28 0745 85 18 70/42 06/28 0652 100 06/28 0600 84 22 100/42 06/28 0400 97.9 78 26 100/39 06/28 0400 97 Room Air 06/28 0200 97.2 75 24 101/53 06/28 0000 96.9 74 20 94/60 06/28 0000 100 Room Air 06/28 0000 96.9 74 20 94/60 100 Room Air 06/27 2316 97.2 68 20 106/46 06/27 2316 97.2 68 20 113/52 100 Room Air Intake & Output 06/28 1600 06/28 0800 06/28 0000 Intake Total 1513 2213 2250 Output Total 950 11 0 Balance 563 2202 2250 Intake, Blood 399 795 100 Product Intake, IV 1114 1418 2150 Intake, Oral 0 0 Number 0 2 Bowel Movements Output, Other 950 Output, Urine 0 11 0 Patient 145.178 kg Weight Physical Exam General Appearance: intubated, obese, unresponsive Head: atraumatic, normal appearance Eyes: Bilateral: other (scleral icterus). Respiratory: lungs clear Cardiovascular: regular rate/rhythm Gastrointestinal: non-tender, distention, positive bowel sounds, obese Extremities: 2+ edema on bilateral lower extremities Neurologic/Psych: not moving extremities Cranial Nerves: bilateral pupils fixed and dilated Skin: jaundice Last 48 Hrs of Labs/Jb: Laboratory Tests 06/28/16 0950: Lactic Acid 15.4 H 06/28/16 0950: Anion Gap ND, Estimated GFR 12 L, Glucose 62 L, Calcium 7.6 L, Phosphorus 8.9 H, Magnesium 2.6 H, Total Bilirubin 25.5 H, AST 602 H, ALT 174 H, Albumin 2.3 L, PT 56.5 *H, INR 5.47 *H, APTT 114 *H, CBC w Diff MAN DIFF ORDERED, RBC 1.38 L, MCV 117.8 H, MCH 41.7 H, RDW 27.4 H, MPV 7.7, Gran % 76.8 H, Lymphocytes % 12.3 L, Monocytes % 10.4 H, Eosinophils % 0.3, Basophils % 0.2, Absolute Granulocytes 10.6 H, Segmented Neutrophils 70, Band Neutrophils 6 H, Absolute Lymphocytes 1.7, Lymphocytes 13 L, Monocytes 6, Absolute Monocytes 1.4 H, Eosinophils 2, Absolute Eosinophils 0, Absolute Basophils 0, Metamyelocytes 2 H, Myelocytes 1 H, Nucleated RBCs 1 H, Platelet Estimate DECREASED, Polychromasia 1+, Poikilocytosis 2+, Anisocytosis 2+, Macrocytic Cells 2+, Ovalocytes 1+, [place] Cells 2+, PUBS MCHC 35.4 06/28/16 0925: pH 6.95 *L, pCO2 24 L, pO2 169 H, HCO3 5.4 L, ABG O2 Sat (Measured) 96.0, P- 50 (Temp Corrected) Y, Carboxyhemoglobin 2.3, O2 Concentration % 100, Temperature 94.4 L, Respiration Rate 18, O2 Delivery Method VENT, Vent Mode AC, Expiratory Pressure 5, Tidal Volume 600, Phlebotomy Draw Site LEFT RADIAL 06/28/16 0700: CBC w Diff Cancelled, WBC Cancelled, RBC Cancelled, Hgb Cancelled, Hct Cancelled , MCV Cancelled, MCH Cancelled, RDW Cancelled, Plt Count Cancelled, MPV Cancelled, PUBS MCHC Cancelled 06/28/16 0640: Anion Gap 23 H, Estimated GFR 12 L, BUN/Creatinine Ratio 5.2 L, Lactic Acid 15.1 H, Ammonia ND, Troponin I 0.01 06/28/16 0640: Ammonia 192 H, CBC w Diff MAN DIFF ORDERED, RBC 1.67 L, MCV 117.1 H, MCH 41.6 H, RDW 26.7 H, MPV 7.9, Gran % 66.8, Lymphocytes % 19.7 L, Monocytes % 12.9 H, Eosinophils % 0.1, Basophils % 0.5, Absolute Granulocytes 7.8 H, Segmented Neutrophils 66, Band Neutrophils 4, Absolute Lymphocytes 2.3, Lymphocytes 14 L, Monocytes 13 H, Absolute Monocytes 1.5 H, Absolute Eosinophils 0, Absolute Basophils 0.1, Metamyelocytes 2 H, Myelocytes 1 H, Nucleated RBCs 4 H, Platelet Estimate DECREASED, Polychromasia 1+, Poikilocytosis 2+, Anisocytosis 2 +, Macrocytic Cells 2+, Ovalocytes 1+, [place] Cells 1+, PUBS MCHC 35.6 06/28/16 0435: Anion Gap 22 H, Estimated GFR 13 L, Glucose 53 L, Calcium 8.0 L, Phosphorus 7.1 H, Magnesium 2.4 H, Total Bilirubin 31.3 H, AST 421 H, ALT 148 H, Albumin 2.5 L, PT 46.1 *H, INR 4.46 *H, CBC w Diff NO MAN DIFF REQ, RBC 1.50 L , MCV 117.2 H, MCH 40.9 H, RDW 25.6 H, MPV 7.0 L, Gran % 73.6, Lymphocytes % 8.7 L, Monocytes % 17.3 H, Eosinophils % 0.1, Basophils % 0.3, Absolute Granulocytes 8.4 H, Absolute Lymphocytes 1.0 L, Absolute Monocytes 2.0 H, Absolute Eosinophils 0, Absolute Basophils 0, PUBS MCHC 34.9, Hepatitis A IgM Ab NONREACTIVE, Hep Bs Antigen NONREACTIVE, Hep B Core IgM Ab Conf NONREACTIVE, Hepatitis C Antibody NONREACTIVE 06/28/16 0320: Bicarbonate Actual 9 L, Mixed VBG pH 7.24 L, Mixed VBG pCO2 22 L, Mixed VBG O2 Saturation 46 H, P-50 (Temp Corrected) N, Carboxyhemoglobin 4.2, O2 Concentration % 2L, O2 Delivery Method N/C, Phlebotomy Draw Site TLC 06/27/16 2100: Sodium Cancelled, Potassium Cancelled, Chloride Cancelled, Carbon Dioxide Cancelled, Anion Gap Cancelled, BUN Cancelled, Creatinine Cancelled, BUN/ Creatinine Ratio Cancelled, CBC w Diff Cancelled, WBC Cancelled, RBC Cancelled, Hgb Cancelled, Hct Cancelled, MCV Cancelled, MCH Cancelled, RDW Cancelled, Plt Count Cancelled, MPV Cancelled, PUBS MCHC Cancelled 06/27/16 1854: Fluid WBC 150 H, Fld Mesothelial Cells 73, Fld Total RBCs Counted 9400 H 06/27/16 1854: Lymphocytes 8, % Normal PMNs 19, Fluid Glucose 71, Fluid Total Protein < 2.0, Fluid Albumin < 1.0, Fluid LDH 427, Fluid Amylase < 30 06/27/16 1823: Ur Random Creatinine Cancelled, Ur Random Sodium Cancelled, Ur Random Potassium Cancelled, Fraction Sodium Excret Cancelled 06/27/16 1627: Ur Random Creatinine Cancelled, Ur Random Sodium Cancelled, Ur Random Potassium Cancelled, Fraction Sodium Excret Cancelled 06/27/16 1500: Anion Gap 20 H, Estimated GFR 16 L, BUN/Creatinine Ratio 6.8 L, Glucose 73, Calcium 8.2 L, Iron 72, TIBC 131 L, Ferritin 6160.0 H, Total Bilirubin 32.3 H, AST 344 H, ALT 135 H, Alkaline Phosphatase 150 H, Lactate Dehydrogenase 1973 H, Troponin I < 0.01, Total Protein 7.6, Albumin 2.5 L, Globulin 5.1 H, Albumin/Globulin Ratio 0.5 L, Vitamin B12 > 1000 H, Folate 2.2 L, TSH 0.223 L, PT 48.4 *H, INR 4.68 *H, APTT 79 H, CBC w Diff NO MAN DIFF REQ, RBC 1.67 L, MCV 118.7 H, MCH 41.8 H, RDW 22.6 H, MPV 7.7, Gran % 75.3 H, Lymphocytes % 8.5 L, Monocytes % 15.4 H, Eosinophils % 0.3, Basophils % 0.5, Absolute Granulocytes 11.1 H, Absolute Lymphocytes 1.2, Absolute Monocytes 2.3 H, Absolute Eosinophils 0, Absolute Basophils 0.1, PUBS MCHC 35.2, HIV 1&2 Ab Western Blot NONREACTIVE, Serum Alcohol 90.0 06/27/16 1446: Urine Color Cancelled, Urine Clarity Cancelled, Urine pH Cancelled, Ur Specific [place] Cancelled, Urine Protein Cancelled, Urine Ketones Cancelled, Urine Nitrite Cancelled, Urine Bilirubin Cancelled, Urine Urobilinogen Cancelled, Ur Leukocyte Esterase Cancelled, Ur Microscopic Cancelled, Urine Hemoglobin Cancelled, Urine Glucose Cancelled Diagnostic Data Other Results CT HEAD: This examination is not of diagnostic quality and cannot be interpreted accurately. Request has been made to repeat this study. Extra-axial hemorrhage cannot be excluded . The ventricles are normal in size and position with no mass effect or midline shift. CT CHEST/ABDOMEN/PELVIS: Limited study as described. 1. Bibasilar lung consolidation and atelectasis, right greater than left, with probable small left pleural effusion. No pneumothorax. 2. 1 cm spiculated opacity in the right lung apex could be transient inflammatory focus but underlying pulmonary nodule is possible and follow-up chest CT when the patient is clinically stable is recommended. 3. Nodular density in the left subareolar soft tissues may represent asymmetric male gynecomastia. Correlate clinically. 4. Diffuse ascites 5. Hepatic steatosis 6. Moderately distended gallbladder with hyperattenuation of the wall. Subacute cholecystitis or be difficult to exclude. There is no stone or gallbladder wall edema appreciated. 7. Possible anterior left seventh and eighth rib fractures versus motion artifact. 8. Enlarged right and left lobes of the thyroid, possible goiter. This is incompletely imaged. R HIP XR: A right femoral approach catheter courses superiorly at the level of the pelvis with its tip not well identified given the technique and rotation utilized for this exam. Consider a dedicated full frontal pelvic radiograph for more definitive assessment of catheter positioning. Assessment/Plan Impression/Plan: 41 y/o M with PMHx of obesity, HTN and long-standing alcohol abuse who is admitted for acute liver failure with multiple complications including ABLA 2/2 upper GI bleed, coagulopathy and kidney failure, who subsequently underwent cardiopulmonary arrest followed by multisystem organ failure resulting in . Respiratory: #Cardiopulmonary arrest: Patient became apneic and subsequently underwent cardiopulmonary arrest this morning. He was intubated during code and started on mechanical ventilation. Following code, he continued to require 100% FiO2. He was subsequently terminally extubated upon mutual decision reached by family members. Infectious Diseases: Diagnostic paracentesis was performed in the ED due to concern for SBP and patient was started on ceftriaxone. Cultures have been negative so far and SBP is unlikely as fluid WBC count < 150. Patient was later switched to broad-spectrum antibiotics vancomycin and ceftazidime given his critical condition. Cardiovascular: #Cardiopulmonary arrest/hypovolemic shock: Patient underwent cardiac arrest and regained ROSC after 16 minutes of code this morning. Following code, he required maximum doses of 3 pressors, IV vasopressin, phenylephrine and Levophed. He underwent asystole after extubation. Hematology: #ABLA 2/ upper GI bleed: Hgb decreased further to 5.8 despite receiving 2 units of pRBCs. Patient was actively bleeding. Bleeding was most likely secondary to esophageal varices. #Coagulopathy: Continued to worse. INR trended up to 5.47 despite receiving 3 units of FFPs. Metabolic: #Acute liver failure: The underlying reason for patient's demise. Secondary to alcoholic cirrhosis. Presented with markedly elevated MELD indicating severe liver failure with poor prognosis. Subsequently underwent multisystem organ failure. #ARF: Patient presented with creatinine of 4.1, likely secondary to hepatorenal syndrome. Creatinine continued to worsened and trended up to a maximum of 5.4. Patient became anuric. #Anion gap metabolic acidosis: Continued to worsen, patient's bicarbonate became severely low at <5 and anion gap increased to 23. Lactic acid was markedly elevated to 15.4. This was likely multifactorial secondary to hypovolemic shock and kidney failure. Alimentary: NPO Neurologic: #Suspected anoxic brain injury: Following code, bilateral pupils were fixed and dilated and patient was unarousable despite not being on sedation portending extremely poor prognosis. Problem List: 1. Cardiopulmonary arrest 2. Alcoholic hepatitis 3. Acute liver failure 4. Acute renal failure 5. Acute blood loss anemia 6. Upper GI bleed 7. Coagulopathy Consult Acknowledgment - Thank you for your consult request. KATELYN FRANCIS MD 06/28/16 0909: Assessment/Plan Other Findings/Comments: Impression 41 year old man -etoh dependence -liver cirrhosis -acute blood loss anemia, likely UGIB -LISSY secondary to ATN/hypotension -hypovolemic shock on vasopressors -s/p cardiac arrest -ascites -hyperammonemia Plan Respiratory -abg now -mechanical ventilation -AC 600/18/5/100% ID -d/c ceftriaxone -begin vancomycin with monitoring of levels, ceftazadime -f/u all cx, including paracentesis culture CVS -on levophed, vasopressin, neosynephrine -MAP goal of 65 -ekgs, troponins -ECHO/cardiology input Heme -transfuse 2 units now and monitor cbc -s/p ffp -gi input -monitor coags Metabolic -ins/outs -?hepatorenal -nephrology consultation -octreotide,ppi Alimentary -NPO -will ask GI about lactulose/rifaximin - hyperammonemia Neuro -CT head suboptimal -if stabilized will repeat ALPS for DVT prophylaxis TTS 75 min Discussion with family including mother, father and brothers was held. Prognosis grim, pupils fixed/dilated Consult Acknowledgment - Thank you for your consult request.
--- NOTE | 2016-06-28 09:13 | CT SCAN REPORT ---
EXAMINATION: CT OF THE CHEST ABDOMEN AND PELVIS CLINICAL INFORMATION: Rule out intra-abdominal or intrathoracic process. Status post CPR COMPARISON: None. TECHNIQUE: Multidetector volumetric helical axial imaging is performed through the chest abdomen and pelvis without intravenous or oral contrast enhancement. Sagittal and coronal reformatted images are constructed at the workstation. DLP 1914 mGy/ centimeter FINDINGS: CHEST CT: Imaged graded by motion artifact MEDIASTINUM: No mediastinal or hilar mass or adenopathy is appreciated. There is no pericardial effusion. There is an endotracheal tube positioned above the sanchez. Central airways are patent. LUNGS: There are bibasilar areas of consolidation and atelectasis, right greater than left. There is a 1 cm spiculated opacity in the right lung apex (#). This could be a transient inflammatory focus, but possible pulmonary nodule warrants further evaluation when clinically appropriate. There is some streaky atelectasis in the lingula. Some pleural-based opacities in the right lateral costophrenic sulcus likely related to atelectasis or scarring. No pneumothorax. There is a probable small left pleural effusion. A rounded soft tissue density in the left subareolar region could represent unilateral male gynecomastia. Correlate clinically. No axillary adenopathy appreciated. There is enlarged right and left lobe of the thyroid, possible goiter, incompletely imaged. CT ABDOMEN PELVIS: Images are degraded by motion artifact. There is a large amount of ascites throughout the abdomen. The LIVER is decreased in attenuation consistent with hepatic steatosis. The focal liver lesion is not delineated but detail is limited. GALLBLADDER is relatively hyperattenuating and distended with no apparent stone or gallbladder wall edema. Subacute cholecystitis would be difficult to exclude SPLEEN is normal in size and attenuation with no focal finding. Both KIDNEYS are normal in size and cortical thickness with no stone, hydronephrosis or perinephric fluid. ADRENAL GLANDS are normal in appearance. The PANCREAS is grossly normal in appearance with no mass or ductal dilatation. GI TRACT: The stomach is distended with air and fluid in the lumen. There is no evidence for large or small bowel obstruction or abnormal distention. Detail is limited but no apparent inflammatory changes of the bowel are appreciated. No pneumatosis or intraperitoneal free air There is no bulky retroperitoneal adenopathy or mass. The abdominal aorta and inferior vena cava are small. PELVIS: No mass or loculated fluid collection is seen in the pelvis. There is large volume ascites. The bladder is empty with a Baum catheter in place There is a venous catheter in the right external iliac vein. OSSEOUS STRUCTURES: Exam is limited by motion artifact. Discontinuity in the anterior left seventh and eighth ribs could be related to motion artifact but rib fractures cannot be excluded. No other questionable fracture or dislocation is seen in the visualized bony structures. IMPRESSION: Limited study as described. 1. Bibasilar lung consolidation and atelectasis, right greater than left, with probable small left pleural effusion. No pneumothorax. 2. 1 cm spiculated opacity in the right lung apex could be transient inflammatory focus but underlying pulmonary nodule is possible and follow-up chest CT when the patient is clinically stable is recommended. 3. Nodular density in the left subareolar soft tissues may represent asymmetric male gynecomastia. Correlate clinically. 4. Diffuse ascites 5. Hepatic steatosis 6. Moderately distended gallbladder with hyperattenuation of the wall. Subacute cholecystitis or be difficult to exclude. There is no stone or gallbladder wall edema appreciated. 7. Possible anterior left seventh and eighth rib fractures versus motion artifact. 8. Enlarged right and left lobes of the thyroid, possible goiter. This is incompletely imaged
--- NOTE | 2016-06-28 09:43 | CT SCAN REPORT ---
EXAMINATION: CT HEAD WITHOUT CONTRAST CLINICAL INFORMATION: Status post CPR with bradycardia rule out stroke COMPARISON: None TECHNIQUE: Contiguous axial imaging was performed from the skull base to vertex without intravenous administration of contrast. DLP: 1097 mGy-cm FINDINGS: Accurate interpretation of this examination is severely limited by motion artifact. Request has been made to repeat this examination, as it is not of diagnostic quality. Increased attenuation in the extra-axial space over the right cerebral convexity and along the falx is noted. Extra-axial hemorrhage cannot be excluded on the basis of this examination. There is no mass effect or midline shift and the ventricles are normal in size. There is opacification of the posterior right ethmoid sinus some fluid in the left maxillary sinus... IMPRESSION: This examination is not of diagnostic quality and cannot be interpreted accurately. Request has been made to repeat this study. Extra-axial hemorrhage cannot be excluded . The ventricles are normal in size and position with no mass effect or midline shift.
[2016-06-28 10:27] LABS: ABSOLUTE BASOPHIL COUNT 0 /CUMM (0.0-0.2); ABSOLUTE LYMPH COUNT 1.7 /CUMM (1.2-3.4); BASOPHIL % 0.2 % (0.0-2.0); RBC DISTRIBUTION WIDTH 27.4 % (11.5-14.5); RED BLOOD CELL CT 1.38 /CUMM (4.70-6.10)
[2016-06-28 10:28] LABS: ABSOLUTE EOSINOPHIL COUNT 0 /CUMM (0.0-0.7); ABSOLUTE GRANULOCYTE CT 10.6 /CUMM (1.4-6.5); ABSOLUTE MONOCYTE COUNT 1.4 /CUMM (0.10-0.60); EOSINOPHIL % 0.3 % (0-5); GRANULOCYTE % 76.8 % (42.2-75.2); MEAN CORPUSCULAR HGB 41.7 PG (27.0-31.0); MEAN CORPUSCULAR HGB CONC 35.4 G/DL (33.0-37.0); MEAN CORPUSCULAR VOLUME 117.8 FL (80.0-94.0); MEAN PLATELET VOLUME 7.7 FL (7.4-10.4); PLATELET COUNT 117 /CUMM (130-400); WHITE BLOOD CELL COUNT 13.9 /CUMM (4.8-10.8)
[2016-06-28 10:39] LABS: HEMATOCRIT 16.2 % (42-52)
--- NOTE | 2016-06-28 10:42 | PN- Gastroenterology ---
Assessment/Plan Assessment/Recommendations: 41 y/o male, HTN/obese, with long history of alcohol abuse x 20 years, last admitted to [facility] 03/29/2016 to 03/31/2016, with alcoholic hepatitis and questionable pancreatitis, with elevated lipase and findings suggestive of this on a noncontrast CT then, however the patient had no abdominal pain, just nausea, vomiting, and diarrhea, which resolved. He also had acute renal failure then, which normalized after IV fluids at that time. He was seen by Dr. Cueva in covering GI consultation on 03/29/2016. The patient was discharged prior to being seen by our GI service, with instructions for outpatient GI follow-up & an elective EGD, which the patient did not comply with. He resumed drinking alcohol after abstaining for 1 month after discharge, up to 2.5L wine daily and/or occasional vodka. He denied cigarette smoking or illicit drugs. He arrived at the [facility] 06/27/2016 at 2:29 PM, BIBA from home with jaundice & fatigue x 2 weeks. He was A & Ox3 upon arrival, with initial BP 94/39, P 69, R 12, T 96, O2 sat RA 95%. Apparently, he had intermittent coffee ground vomitus for the past weeks, with intermittent nausea and vomiting x 2 weeks. There was no bright red blood in the emesis. Today, 06/27/2016, he had scant coffee ground vomitus at home for the first time, which he repeatedx 1 in the ER. He also had intermittent small amounts of BRBPR mixed with his stool over the past 2 weeks, without any spontaneous lower GI bleeding. At times, his stools were intermittently both brown & dark. He denied any light stool. His urine was slightly dark. He had mild pruritus. He denied any trauma, but had multiple bruises over his extremities and torso. He may have had some slight confusion recently, but denied any head trauma. He denied any fevers or chills. He had no symptoms of UTI or URI. The patient noted increased peripheral edema and abdominal distention. He denied any chest pain or shortness of breath. The patient denied any family history of GI malignancy, GI disease, or inherited liver disease. His father is a recovering alcoholic. The patient denied any Tylenol use. He had been on diuretics for his HTN, which were stopped at the time of his [facility] 03/29/2016 admission, in the setting of ARF then, which resolved. His Metoprolol 50 mg daily was continued. The patient denied any Tylenol use or herbal medications. He did use a small amount of aspirin for the past few weeks PT. 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 He denied any previous transfusions, tattoos, needle sticks, IVDA, or viral hepatitis. He admitted to a history of DTs and alcohol withdrawal, but denied any alcohol related seizures. His abdominal distention is new. He noted some occasional B/L lower quadrant discomfort, "3 out of 10," that seemed to be related to streching from his ascites. He denied any previous history of ascites or SBP. 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 There is no history of PUD. He denied any retching or dry heaves. He noted some minimal early satiety. There was no weight loss. His appetite was fair. His weight was without change, despite the peripheral edema and ascites. The patient denied any odynophagia, dysphagia, or GERD. He noted some loose stools over the past week, without any constipation, obstipation, or tenesmus. The patient is depressed & on Prozac, but denied any SI or HI. The patient claims he last drank EtOH 06/26/2016 at 11:00 p.m. I advised the ER to empirically start the patient on Octreotide 50 mcg IV bolus, followed by Octreotide 50 mcg/hr IV drip; Protonix 80 mg IV bolus, followed by Protonix 8 mg/hr IV drip (possibly overkill, but will do this until varices are excluded), Ceftiaxone 1g IVPB, IV NS x 1L, Vitamin K & Zofran. *The patient was subsequently found to have markedly elevated LFTs and ARF, with anemia & coagulopathy. He had dark brownish black stool in the ER on digital exam per Dr. Moe, grossly OB-positive, without fresh BRB. On my repeat digital rectal exam in the ER, on 06/27/2016, the patient had brown stool, OB positive. 03/29/2016: CT ABDOMEN AND PELVIS WITHOUT CONTRAST- 1. Hydropic gallbladder with layering sludge. No evidence of acute gallbladder inflammation or biliary obstruction. CBD 5 mm. 2. Nonspecific finding of mild haziness in the retroperitoneum, seen in the peripancreatic region and extending inferiorly into the right lateral conal fascia with associated multiple tiny lymph nodes and mild vascular hyperemia. In the correct clinical setting, findings may reflect mild acute pancreatitis (*the patient had an elevated lipase then). 3. Hepatosplenomegaly. 4. Small fat-containing umbilical hernia. 03/29/2016: Hep A Ab, Hep B s Ag, Hep C Ab, & Hep B core Ab- all negative; [ Tylenol] < 10. 03/31/2016: PT 18.9, INR 1.79, WBC 7.9, H/H 10.3/30.8, MCV 113.1, RDW 17.5, PLT 123, BUN/Cr 24/0.9, GFR > 60, alb 3.1, TBil 8.0/DBil 4.8, AST 117, CHANTELLE 139 06/27/2016: Admission labs- WBC 14.7 (75% gran/11 gran Ab), H/H 7.0/19.8, MCV 118.7, PLT 162, PT 48.4, INR 4.68, PTT 79, glu 73, BUN/Cr 28/4.1, GFR 16, Na 129 , K 4.1, HCO3 12, AG 20, Ca 8.2, alb 2.5, glob 5.1, TBil 32.3 (without fractionation), alk phos 150, AST 344, ALT 135, troponin < .01, [EtOH] 90, U/A- pending. 06/27/2016: *Markedly elevated discriminant function on admission by the Maddrey formula (*199.740), however, the patient is not a candidate for Prednisolone or Trental with possible SBP (await diagnostic abdominal tap) and with GI bleed. [ This therapy seems to have fallen out of favor, anyway]. 06/27/2016: *Admission MELD- *[place] 50/UNOS 50 06/27/2016: EKG- NSR @ 67, normal axis, normal intervals, NSST inferiorly. 06/27/2016: XR PORTABLE CHEST- Low lung volumes with bibasilar opacities, most likely related to subsegmental atelectasis. Superimposed pneumonia, especially in the right lung base cannot be entirely excluded but is felt to be less likely. Close clinical correlation is requested. 06/27/2016: US RETROPERITONEAL COMPLETE (RENAL)- 1. Left kidney suboptimally assessed. Overall, both kidneys appear unremarkable. 2. Bladder not seen. 3. Interval development of large volume ascites. (*? Liver & GB not imaged) *The patient had a markedly elevated MELD & positive discriminant function on admission. He was not a candidate for Prednisolone or Trental, especially with a GI bleed, although I did not think the GI bleed was the major issue upon presentation. He was not actively bleeding in the ER and needed stabilization. He was in acute renal failure, along with liver failure. He had alcoholic hepatitis superimposed on probable cirrhosis. Differential diagnosis for the upper GI bleed included variceal vs. non-variceal sources (i.e.- PUD/GERD/MWT/ Dieulafoy/angiodysplasia > neoplasm), and he was covered with both IV Octreoide and IV Protonix drips for the time being (possibly overkill). With regards to the ARF, there was no hydronephrosis on the ultrasound, although radiology did not get imaging studies of the liver and gallbladder. Possibilities for the ARF included prerenal vs. HRS > ATN. 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 The patient was A & Ox3 upon presentation, with some ? mild asterixis. 06/27/2016: *Diagnostic abdominal tap without SBP (although the patient was empirically started on IV Ceftriaxone on admission). Specifically, RBC 9400 ( due to elevated INR), WBC 150 (19% PMN, with absolute # PMN 28.5), BF protein < 2.0, BF albumin < 1.0 with SAAG > 1.5 06/27/2016: Fe 72, TIBC 131, Fe sat 55%, *ferritin 6160 (? acute phase rx vs. HHC), B12 > 1000, *folate 2.2, mildly low TSH 0.223, HIV- negative. 06/27/2016: Ascitic C&S- negative x 1 day *The events of 06/28/2016 were noted. The patient received 1u PRBC & 2u FFP & Vitamin K earlier this a.m., with plans to consider EGD today after stabilization. However, around 6:13 AM, the patient became bradycardic to the 30 's, followed by respiratory depression and PEA. He was intubated and coded for 16 minutes, followed by ROSC. Unfortunately, his pupils were fixed and dilated post code. He has agonal respirations on the vent, without any ability to assist in breathing. I was contacted by the medical house staff 6:40 a.m. today regarding the above, & the patient has been managed mmedically by Dr. Tatianna Young , Dr. Benjamin & the ICU team. There was no active UGI bleeding overnight, until after CPR , when fresh blood was suctioned from his mouth (as expected), following chest compressions. The patient's coagulopathy has worsened. Initially, he did not require pressors, but he is currently on triple pressors (Imtiaz-Synephrine, Levophed, and Pitressin), plus broad-spectrum antibiotics ( Ceftriaxone switched to IV Vancomycin/Fortaz, per ICU) & IV HCO3 drip. He is afebrile, albeit slightly hypothermic at times. He remains on IV Octreotide & IV Protonix drips, plus SPA 25g IV Q8h. IV Folate was given, in addition to IV banana bag. The patient is being seen by cardiology. The patient is on a vent and is not responsive to noxious stimuli, despite the fact that he is not sedated. He is anuric. A Baum catheter was placed, without urine. Troponin .01 post code. *Imaging studies were obtained post code, per ICU (see below). 06/28/2016: *ABG (AC 18/TV 600/FiO2 100%/PEEP 5)- 6.95/24/169/96%/HCO3 5.4/ CO HB 2.3 06/28/2016: *NH3 192 (obtained post code, however did have mild asterixis pre- code) 06/28/2016: 9:50 a.m (post code)- glu 62, BUN/Cr 27/5.4, GFR 12, Na 130, K 5.8, HCO3 < 5, Mg 2.6, Ca 7.6, PO4 8.9, alb 2.3, TBil 25.5, AST 602, ALT 174, * lactate 15.4, troponin .01, PT 56.5, INR 5.47, PTT 114, WBC 13.9 (70S/6B/13L/6M/ 2E/2Meta/1Myelo/1NRBC), H/H 5.8/16.2, MCV 117.8, PLT 117 06/28/2016: XRY-HIP 1 VIEW, RIGHT (to assess femoral line)- A right femoral approach catheter courses superiorly at the level of the pelvis with its tip not well identified given the technique and rotation utilized for this exam. Consider a dedicated full frontal pelvic radiograph for more definitive assessment of catheter positioning. 06/28/2016: CT HEAD WITHOUT CONTRAST- This examination is not of diagnostic quality and cannot be interpreted accurately. Request has been made to repeat this study. Extra-axial hemorrhage cannot be excluded . The ventricles are normal in size and position with no mass effect or midline shift. 06/28/2016: CT OF THE CHEST ABDOMEN AND PELVIS W/O IV CONTRAST- Limited study as described. 1. Bibasilar lung consolidation and atelectasis, right greater than left, with probable small left pleural effusion. No pneumothorax. 2. 1 cm spiculated opacity in the right lung apex could be transient inflammatory focus but underlying pulmonary nodule is possible and follow-up chest CT when the patient is clinically stable is recommended. 3. Nodular density in the left subareolar soft tissues may represent asymmetric male gynecomastia. Correlate clinically. 4. Diffuse ascites 5. Hepatic steatosis 6. Moderately distended gallbladder with hyperattenuation of the wall. Subacute cholecystitis or be difficult to exclude. There is no stone or gallbladder wall edema appreciated. 7. Possible anterior left seventh and eighth rib fractures versus motion artifact. 8. Enlarged right and left lobes of the thyroid, possible goiter. This is incompletely imaged *I had a long discussion with the patient's parents, Brent & Pearl (who are ) at the bedside in the [facility] on 06/28/2016 at 11 a.m., & they understand the grim prognosis, based on his neurologic exam, superimposed on liver failure and renal failure. There does not appear to be any meaningful chance of recovery. There wishes for their son to be seen by a high speed warper tender, at which point, they will consider termial extubation. For now, he will be continued on maximal medical therapy, but if a significant cardiac event occurs prior to extubation, they do not want to repeat CPR. Based on the above, obtaining a renal consult would be a moot point. *SUGGEST: (Please see above family discussion). Continue broad-spectrum antibiotics, triple pressors, HCO3, Protonix, Octreotide, folate, SPA, blood products & vent support for now. However, as per the family's wishes, CPR is not to be performed if a cardiac event recurs prior to the patient being seen by the high speed warper tender. (Obtaining an echocardiogram to rule out EtOH cardiomyopathy is probably a moot point). At the moment, the patient's parents are leaning towards terminally extubating the patient after he receives his last rites. They will discuss this further with Dr. Benjamin. The above was discussed with the medical housestaff, Dr. Benjamin, & Dr. Puente, & we all concur that the patient will not have any meaningful recovery. I expect the patient to soon, even if he is not terminally extubated. Please call if any further GI input is needed. Condolences were expressed to the patient's parents. 1/2 hour of ICU care was spent on the patient. Problem List: 1. Cardiopulmonary arrest 2. Alcoholic hepatitis 3. Cirrhosis 4. Acute liver failure 5. Acute renal failure 6. Anemia 7. Coagulopathy 8. Thrombocytopenia 9. Upper GI bleed 10. Ascites 11. Portal-systemic encephalopathy 12. Umbilical hernia Subjective Subjective: 06/27/2016: *Diagnostic abdominal tap without SBP (although the patient was empirically started on IV Ceftriaxone on admission). Specifically, RBC 9400 ( due to elevated INR), WBC 150 (19% PMN, with absolute # PMN 28.5), BF protein < 2.0, BF albumin < 1.0 with SAAG > 1.5 06/27/2016: Fe 72, TIBC 131, Fe sat 55%, *ferritin 6160 (? acute phase rx vs. HHC), B12 > 1000, *folate 2.2, mildly low TSH 0.223, HIV- negative. 06/27/2016: Ascitic C&S- negative x 1 day *The events of 06/28/2016 were noted. The patient received 1u PRBC & 2u FFP & Vitamin K earlier this a.m., with plans to consider EGD today after stabilization. However, around 6:13 AM, the patient became bradycardic to the 30 's, followed by respiratory depression and PEA. He was intubated and coded for 16 minutes, followed by ROSC. Unfortunately, his pupils were fixed and dilated post code. He has agonal respirations on the vent, without any ability to assist in breathing. I was contacted by the medical house staff 6:40 a.m. today regarding the above, & the patient has been managed mmedically by Dr. Tatianna Young , Dr. Benjamin & the ICU team. There was no active UGI bleeding overnight, until after CPR , when fresh blood was suctioned from his mouth (as expected), following chest compressions. The patient's coagulopathy has worsened. Initially, he did not require pressors, but he is currently on triple pressors (Imtiaz-Synephrine, Levophed, and Pitressin), plus broad-spectrum antibiotics ( Ceftriaxone switched to IV Vancomycin/Fortaz, per ICU) & IV HCO3 drip. He is afebrile, albeit slightly hypothermic at times. He remains on IV Octreotide & IV Protonix drips, plus SPA 25g IV Q8h. IV Folate was given, in addition to IV banana bag. The patient is being seen by cardiology. The patient is on a vent and is not responsive to noxious stimuli, despite the fact that he is not sedated. He is anuric. A Baum catheter was placed, without urine. Troponin .01 post code. *Imaging studies were obtained post code, per ICU (see below). 06/28/2016: *ABG (AC 18/TV 600/FiO2 100%/PEEP 5)- 6.95/24/169/96%/HCO3 5.4/ CO HB 2.3 06/28/2016: *NH3 192 (obtained post code, however did have mild asterixis pre- code) 06/28/2016: 9:50 a.m (post code)- glu 62, BUN/Cr 27/5.4, GFR 12, Na 130, K 5.8, HCO3 < 5, Mg 2.6, Ca 7.6, PO4 8.9, alb 2.3, TBil 25.5, AST 602, ALT 174, * lactate 15.4, troponin .01, PT 56.5, INR 5.47, PTT 114, WBC 13.9 (70S/6B/13L/6M/ 2E/2Meta/1Myelo/1NRBC), H/H 5.8/16.2, MCV 117.8, PLT 117 06/28/2016: XRY-HIP 1 VIEW, RIGHT (to assess femoral line)- A right femoral approach catheter courses superiorly at the level of the pelvis with its tip not well identified given the technique and rotation utilized for this exam. Consider a dedicated full frontal pelvic radiograph for more definitive assessment of catheter positioning. 06/28/2016: CT HEAD WITHOUT CONTRAST- This examination is not of diagnostic quality and cannot be interpreted accurately. Request has been made to repeat this study. Extra-axial hemorrhage cannot be excluded . The ventricles are normal in size and position with no mass effect or midline shift. 06/28/2016: CT OF THE CHEST ABDOMEN AND PELVIS W/O IV CONTRAST- Limited study as described. 1. Bibasilar lung consolidation and atelectasis, right greater than left, with probable small left pleural effusion. No pneumothorax. 2. 1 cm spiculated opacity in the right lung apex could be transient inflammatory focus but underlying pulmonary nodule is possible and follow-up chest CT when the patient is clinically stable is recommended. 3. Nodular density in the left subareolar soft tissues may represent asymmetric male gynecomastia. Correlate clinically. 4. Diffuse ascites 5. Hepatic steatosis 6. Moderately distended gallbladder with hyperattenuation of the wall. Subacute cholecystitis or be difficult to exclude. There is no stone or gallbladder wall edema appreciated. 7. Possible anterior left seventh and eighth rib fractures versus motion artifact. 8. Enlarged right and left lobes of the thyroid, possible goiter. This is incompletely imaged *I had a long discussion with the patient's parents at the bedside in the ICU, Brent & Pearl (who are ) & they understand the grim prognosis, based on his neurologic exam, superimposed on liver failure and renal failure. There does not appear to be any meaningful chance of recovery. There wishes for their son to be seen by a high speed warper tender, at which point, they will consider termial extubation. For now, he will be continued on maximal medical therapy, but if a significant cardiac event occurs prior to extubation, they do not want to repeat CPR. Based on the above, obtaining a renal consult would be a moot point. Review of Systems: ROS currently unobtainable, as patient is unresponsive to noxius stimuli, on ventilator, post coding. Review of Systems Comments: Unobtaiable. Objective Vital Signs and I&Os Vital Signs Date Time Temp Pulse Resp B/P Pulse O2 O2 Flow FiO2 Ox Delivery Rate 06/28 0745 85 18 70/42 06/28 0652 100 06/28 0600 84 22 100/42 06/28 0400 97.9 78 26 100/39 06/28 0400 97 Room Air 06/28 0200 97.2 75 24 101/53 06/28 0000 96.9 74 20 94/60 06/28 0000 100 Room Air 06/28 0000 96.9 74 20 94/60 100 Room Air 06/27 2316 97.2 68 20 106/46 06/27 2316 97.2 68 20 113/52 100 Room Air 06/27 2119 98.9 71 18 90/40 95 06/27 1920 96.0 74 18 100/46 06/27 1917 94 Room Air 06/27 1917 96.0 74 18 100/46 94 Room Air 06/27 1746 96.5 67 18 90/40 94 Room Air 06/27 1601 96.6 74 18 118/58 96 Room Air 06/27 1514 64 18 103/47 95 Room Air 06/27 1432 96.0 69 12 94/39 95 Room Air Intake & Output 06/28 1600 06/28 0400 06/27 1600 06/27 0400 06/26 1600 06/26 0400 Intake Total 2213 2250 Output Total 11 0 Balance 2202 2250 Intake, Blood 795 100 Product Intake, IV 1418 2150 Intake, Oral 0 Number 2 Bowel Movements Output, Urine 11 0 Patient 320 lb 325 lb Weight Physical Exam: Well-developed, chronically ill appearing, yellow, obese male, with agonal respirations, on ventilator. Sclera icteric. Conjunctiva slightly pale. Small amount of blood suctioned from mouth. There is no adenopathy, JVD, or HJR. ? if tiny goiter. No peripheral stigmata of inflammatory bowel disease on exam. Few faint spiders on the anterior chest wall. No definite gynecomastia. Lungs: clear to A&P, with slight decreased breath sounds at the bases B/L. There is no flail chest, nor chest wall crepitus. Heart exam: regular rate rhythm, distant S1 and S2, with soft I/ flow murmur. Abdominal exam: hypoactive bowel sounds, obese belly, moderately distended, nontender (although unresponsive), without guarding or rebound. Small reducible umbilical hernia, otherwise, no mass. Liver approximately 20 cm by percussion with ? palpable spleen tip. Positive fluid shift. No pulsatile mass. No epigastric bruit. Repeat digital rectal exam: deferred (done by myself in the ER 06/27/2016: brown stool, OB-positive, without fresh BRB or melena then. Normal sphincter tone. No mass. Smooth prostate. No nodule. No external hemorrhoids. No fissure). Right femoral line in groin. Extremities: without cyanosis or clubbing. 2+ pitting edema of the LE B/L. No palpable cords. Borderline palmar erythema. No Dupuytren's contractures. Distal pulses < 1+ bilaterally. DTRs hyporeflexic bilaterally. Uncooperative with CN testing. Pupils fixed and dilated. Unresponsive to noxious or verbal stimuli (disoriented 3). Not moving extremities. There is no decorticate or decerebrate posturing. No tremor. No asterixis. Plantar responses are equivocal bilaterally. Current Medications: Current Medications Sig/Vladimir Start time Last Medication Dose Route Stop Time Status Admin Albumin Human 25 GM Q8 06/27 1728 AC 06/27 IV 2220 Albumin Human 12.5 GM ONCE ONE 06/27 1630 DC 06/27 IV 06/27 1631 1740 Ceftazidime 2,000 MG Q24H 06/28 1100 AC IV Ceftriaxone Sodium 1,000 MG DAILY@1600 06/28 1600 CAN IV Ceftriaxone Sodium 0 .STK-MED ONE 06/27 1601 DC .ROUTE Ceftriaxone Sodium 1,000 MG ONCE ONE 06/27 1515 DC 06/27 IV 06/27 1516 1615 Cyanocobalamin/ 1 BAG DAILY 06/28 1000 CAN Thiamine/Pyridoxine IV Sodium Chloride 1,000 ML Cyanocobalamin/ 1 BAG ONE ONE 06/27 2000 DC Thiamine/Pyridoxine IV 06/28 0559 Dextrose/Water 1,000 ML Dextrose 25 GM ONCE ONE 06/28 1145 DC IV 06/28 1146 Dextrose 25 GM ONCE ONE 06/28 0830 DC 06/28 IV 06/28 0831 0832 Fluoxetine HCl 40 MG DAILY 06/28 1000 AC PO Folic Acid 1 MG DAILY 06/27 1938 CAN IV Hydrochlorothiazide 12.5 MG DAILY 06/28 1000 CAN PO Lidocaine/Epinephrine 0 .STK-MED ONE 06/27 1837 DC .ROUTE Lorazepam 1 MG Q6 06/27 2359 DC 06/28 PO 0039 Lorazepam 0 .STK-MED ONE 06/27 1948 DC .ROUTE Lorazepam 1 MG ONCE ONE 06/27 1915 DC IV 06/27 1916 Lorazepam 2 MG Q6 06/27 1800 DC PO Lorazepam 0 Q1P PRN 06/27 1745 AC IV Losartan Potassium 100 MG DAILY 06/28 1000 CAN PO Metoprolol Succinate 50 MG DAILY 06/28 1000 CAN PO Norepinephrine 4 MG Q24H 06/28 0830 06/28 Sodium Chloride 250 ML IV 0745 Octreotide Acetate 500 MCG Q10H 06/28 0700 06/28 Dextrose/Water 500 ML IV 0925 Octreotide Acetate 50 MCG ONCE ONE 06/27 1445 DC 06/27 IV 06/27 1446 1545 Octreotide Acetate 500 MCG Q10H 06/27 1445 DC 06/27 Dextrose/Water 500 ML IV 1545 Ondansetron HCl 4 MG ONCE ONE 06/27 1600 DC 06/27 IV 06/27 1601 1600 Ondansetron HCl 0 .STK-MED ONE 06/27 1600 DC .ROUTE Pantoprazole Sodium 40 MG BID 06/28 1135 AC IV Pantoprazole Sodium 0 .STK-MED ONE 06/27 1630 DC IV Pantoprazole Sodium 0 .STK-MED ONE 06/27 1509 DC IV Pantoprazole Sodium 80 MG ONCE ONE 06/27 1445 DC 06/27 IV 06/27 1446 1513 Pantoprazole Sodium 40 MG Q5H 06/[address] 06/28 Sodium Chloride 100 ML IV 0453 Phenylephrine HCl 40 MG Q24H 06/28 0900 06/28 Sodium Chloride 250 ML IV 0914 Phytonadione 5 MG DAILY 06/28 1000 AC 06/28 IL 06/30 1001 1134 Phytonadione 0 .STK-MED ONE 06/27 1630 DC .ROUTE Phytonadione 10 MG ONCE ONE 06/27 1545 DC 06/27 SC 06/27 1546 1630 Sodium Bicarbonate 150 MEQ Q6H 06/28 0830 06/28 Dextrose/Water 1,000 ML IV 0915 Sodium Chloride 1,000 ML BOLUS ONE 06/27 1630 DC 06/27 IV 06/27 1729 1740 Sodium Chloride 1,000 ML BOLUS ONE 06/27 1445 DC 06/27 IV 06/27 1544 1440 Thiamine HCl 100 MG ONCE ONE 06/27 194 CAN Sodium Chloride 100 ML IV 06/27 204 Trimethobenzamide HCl 200 MG 4 TIMES/DAY PRN 06/27 1815 AC IM Vancomycin HCl 1,000 MG ONCE ONE 06/28 0915 DC Dextrose/Water 250 ML IV 06/28 1014 Vasopressin 40 UNITS Q16H 06/28 0830 AC 06/28 Dextrose/Water 100 ML IV 0820 Results Pertinent Lab Results: Laboratory Tests 06/28 06/28 0950 0950 Chemistry Sodium (137 - 145 mmol/L) 130 L Potassium (3.5 - 5.1 mmol/L) 5.8 H Chloride (98 - 107 mmol/L) 101 Carbon Dioxide (22 - 30 mmol/L) < 5 *L Anion Gap (5 - 16) ND BUN (9 - 20 mg/dL) 27 H Creatinine (0.7 - 1.2 mg/dL) 5.4 *H Estimated GFR (>60 ml/min) 12 L Glucose (65 - 99 mg/dL) 62 L Lactic Acid (0.7 - 2.1 mmol/L) 15.4 H Calcium (8.4 - 10.2 mg/dL) 7.6 L Phosphorus (2.5 - 4.5 mg/dL) 8.9 H Magnesium (1.6 - 2.3 mg/dL) 2.6 H Total Bilirubin (0.2 - 1.3 mg/dL) 25.5 H AST (17 - 59 U/L) 602 H ALT (21 - 72 U/L) 174 H Albumin (3.5 - 5.0 g/dL) 2.3 L Coagulation PT (9.4 - 12.5 SEC) 56.5 *H INR (0.90 - 1.17) 5.47 *H APTT (25 - 37 SEC) 114 *H Hematology CBC w Diff MAN DIFF ORDERED WBC (4.8 - 10.8 /CUMM) 13.9 H RBC (4.70 - 6.10 /CUMM) 1.38 L Hgb (14.0 - 18.0 G/DL) 5.8 *L Hct (42 - 52 %) 16.2 *L MCV (80.0 - 94.0 FL) 117.8 H MCH (27.0 - 31.0 PG) 41.7 H RDW (11.5 - 14.5 %) 27.4 H Plt Count (130 - 400 /CUMM) 117 L MPV (7.4 - 10.4 FL) 7.7 Gran % (42.2 - 75.2 %) 76.8 H Lymphocytes % (20.5 - 51.1 %) 12.3 L Monocytes % (1.7 - 9.3 %) 10.4 H Eosinophils % (0 - 5 %) 0.3 Basophils % (0.0 - 2.0 %) 0.2 Absolute Granulocytes (1.4 - 6.5 /CUMM) 10.6 H Segmented Neutrophils (42.2 - 75.2 %) 70 Band Neutrophils (0.0 - 5.0 %) 6 H Absolute Lymphocytes (1.2 - 3.4 /CUMM) 1.7 Lymphocytes (20.5 - 51.1 %) 13 L Monocytes (1.7 - 9.3 %) 6 Absolute Monocytes (0.10 - 0.60 /CUMM) 1.4 H Eosinophils (0 - 5.0 %) 2 Absolute Eosinophils (0.0 - 0.7 /CUMM) 0 Absolute Basophils (0.0 - 0.2 /CUMM) 0 Metamyelocytes (0.0 - 1.0 %) 2 H Myelocytes (0 - 0 %) 1 H Nucleated RBCs (0.0 - 0.0 /100WBC) 1 H Platelet Estimate (ADEQUATE) DECREASED Polychromasia 1+ Poikilocytosis 2+ Anisocytosis 2+ Macrocytic Cells 2+ Ovalocytes 1+ Gladys Cells 2+ PUBS MCHC (33.0 - 37.0 G/DL) 35.4 06/28 06/28 0925 0640 Blood Gas pH (7.35 - 7.45 PH) 6.95 *L pCO2 (35 - 45 TORR) 24 L pO2 (80 - 100 TORR) 169 H HCO3 (21 - 28 MEQ/L) 5.4 L ABG O2 Sat (Measured) (>96.0 %) 96.0 P-50 (Temp Corrected) Y Carboxyhemoglobin (1.5 - 5.0 %) 2.3 O2 Concentration % 100 Temperature (97.0 - 100.0 FARH) 94.4 L Respiration Rate (BPM) 18 O2 Delivery Method VENT Vent Mode AC Expiratory Pressure (CMH2O/P) 5 Tidal Volume (CC) 600 Chemistry Sodium (137 - 145 mmol/L) 131 L Potassium (3.5 - 5.1 mmol/L) 4.8 Chloride (98 - 107 mmol/L) 101 Carbon Dioxide (22 - 30 mmol/L) 7 *L Anion Gap (5 - 16) 23 H BUN (9 - 20 mg/dL) 27 H Creatinine (0.7 - 1.2 mg/dL) 5.2 *H Estimated GFR (>60 ml/min) 12 L BUN/Creatinine Ratio (7 - 25 %) 5.2 L Lactic Acid (0.7 - 2.1 mmol/L) 15.1 H Ammonia (9 - 30 umol/L) ND Troponin I (<0.11 ng/ml) 0.01 Miscellaneous Phlebotomy Draw Site LEFT RADIAL 06/28 06/28 0640 0435 Chemistry Sodium (137 - 145 mmol/L) 130 L Potassium (3.5 - 5.1 mmol/L) 4.8 Chloride (98 - 107 mmol/L) 99 Carbon Dioxide (22 - 30 mmol/L) 8 *L Anion Gap (5 - 16) 22 H BUN (9 - 20 mg/dL) 28 H Creatinine (0.7 - 1.2 mg/dL) 5.0 H Estimated GFR (>60 ml/min) 13 L Glucose (65 - 99 mg/dL) 53 L Calcium (8.4 - 10.2 mg/dL) 8.0 L Phosphorus (2.5 - 4.5 mg/dL) 7.1 H Magnesium (1.6 - 2.3 mg/dL) 2.4 H Total Bilirubin (0.2 - 1.3 mg/dL) 31.3 H AST (17 - 59 U/L) 421 H ALT (21 - 72 U/L) 148 H Ammonia (9 - 30 umol/L) 192 H Albumin (3.5 - 5.0 g/dL) 2.5 L Coagulation PT (9.4 - 12.5 SEC) 46.1 *H INR (0.90 - 1.17) 4.46 *H Hematology CBC w Diff MAN DIFF ORDERED NO MAN DIFF REQ WBC (4.8 - 10.8 /CUMM) 11.7 H 11.4 H RBC (4.70 - 6.10 /CUMM) 1.67 L 1.50 L Hgb (14.0 - 18.0 G/DL) 6.9 *L 6.1 *L Hct (42 - 52 %) 19.5 *L 17.5 *L MCV (80.0 - 94.0 FL) 117.1 H 117.2 H MCH (27.0 - 31.0 PG) 41.6 H 40.9 H RDW (11.5 - 14.5 %) 26.7 H 25.6 H Plt Count (130 - 400 /CUMM) 122 L 111 L MPV (7.4 - 10.4 FL) 7.9 7.0 L Gran % (42.2 - 75.2 %) 66.8 73.6 Lymphocytes % (20.5 - 51.1 %) 19.7 L 8.7 L Monocytes % (1.7 - 9.3 %) 12.9 H 17.3 H Eosinophils % (0 - 5 %) 0.1 0.1 Basophils % (0.0 - 2.0 %) 0.5 0.3 Absolute Granulocytes (1.4 - 6.5 /CUMM) 7.8 H 8.4 H Segmented Neutrophils (42.2 - 75.2 %) 66 Band Neutrophils (0.0 - 5.0 %) 4 Absolute Lymphocytes (1.2 - 3.4 /CUMM) 2.3 1.0 L Lymphocytes (20.5 - 51.1 %) 14 L Monocytes (1.7 - 9.3 %) 13 H Absolute Monocytes (0.10 - 0.60 /CUMM) 1.5 H 2.0 H Absolute Eosinophils (0.0 - 0.7 /CUMM) 0 0 Absolute Basophils (0.0 - 0.2 /CUMM) 0.1 0 Metamyelocytes (0.0 - 1.0 %) 2 H Myelocytes (0 - 0 %) 1 H Nucleated RBCs (0.0 - 0.0 /100WBC) 4 H Platelet Estimate (ADEQUATE) DECREASED Polychromasia 1+ Poikilocytosis 2+ Anisocytosis 2+ Macrocytic Cells 2+ Ovalocytes 1+ Gladys Cells 1+ PUBS MCHC (33.0 - 37.0 G/DL) 35.6 34.9 Serology Hepatitis A IgM Ab (NONREACTIVE) Pending Hep Bs Antigen (NONREACTIVE) Pending Hep B Core IgM Ab Conf (NONREACTIVE) Pending Hepatitis C Antibody (NONREACTIVE) Pending 06/28 06/27 06/27 06/27 0320 2100 1854 1854 Blood Gas Bicarbonate Actual (22 - 26 MEQ/L) 9 L Mixed VBG pH (7.31 - 7.41 PH) 7.24 L Mixed VBG pCO2 (41 - 51 TORR) 22 L Mixed VBG O2 Saturation (35 - 45 TORR) 46 H P-50 (Temp Corrected) N Carboxyhemoglobin (1.5 - 5.0 %) 4.2 O2 Concentration % 2L O2 Delivery Method N/C Chemistry Sodium Cancelled Potassium Cancelled Chloride Cancelled Carbon Dioxide Cancelled Anion Gap Cancelled BUN Cancelled Creatinine Cancelled BUN/Creatinine Ratio Cancelled Hematology CBC w Diff Cancelled WBC Cancelled RBC Cancelled Hgb Cancelled Hct Cancelled MCV Cancelled MCH Cancelled RDW Cancelled Plt Count Cancelled MPV Cancelled Lymphocytes (%) 8 % Normal PMNs (%) 19 PUBS MCHC Cancelled Miscellaneous Phlebotomy Draw Site TLC Other Body Source Fluid WBC (0 - 5 /CUMM) 150 H Fld Mesothelial Cells (%) 73 Fld Total RBCs Counted (0 /CUMM) 9400 H Fluid Glucose (mg/dL) 71 Fluid Total Protein (g/dL) < 2.0 Fluid Albumin (g/dL) < 1.0 Fluid LDH (U/L) 427 Fluid Amylase (U/L) < 30 06/27 06/27 1500 1446 Chemistry Sodium (137 - 145 mmol/L) 129 L Potassium (3.5 - 5.1 mmol/L) 4.1 Chloride (98 - 107 mmol/L) 97 L Carbon Dioxide (22 - 30 mmol/L) 12 L Anion Gap (5 - 16) 20 H BUN (9 - 20 mg/dL) 28 H Creatinine (0.7 - 1.2 mg/dL) 4.1 H Estimated GFR (>60 ml/min) 16 L BUN/Creatinine Ratio (7 - 25 %) 6.8 L Glucose (65 - 99 mg/dL) 73 Calcium (8.4 - 10.2 mg/dL) 8.2 L Iron (49 - 181 ug/dL) 72 TIBC (261 - 462 ug/dL) 131 L Ferritin (17.9 - 464 ng/mL) 6160.0 H Total Bilirubin (0.2 - 1.3 mg/dL) 32.3 H AST (17 - 59 U/L) 344 H ALT (21 - 72 U/L) 135 H Alkaline Phosphatase (< 127 U/L) 150 H Lactate Dehydrogenase (313 - 618 U/L) 1973 H Troponin I (<0.11 ng/ml) < 0.01 Total Protein (6.3 - 8.2 g/dL) 7.6 Albumin (3.5 - 5.0 g/dL) 2.5 L Globulin (1.9 - 4.2 gm/dL) 5.1 H Albumin/Globulin Ratio (1.1 - 2.2 %) 0.5 L Vitamin B12 (239 - 931 pg/mL) > 1000 H Folate (2.76 - 20.0 ng/mL) 2.2 L TSH (0.270 - 4.200 uIU/mL) 0.223 L Coagulation PT (9.4 - 12.5 SEC) 48.4 *H INR (0.90 - 1.17) 4.68 *H APTT (25 - 37 SEC) 79 H Hematology CBC w Diff NO MAN DIFF REQ WBC (4.8 - 10.8 /CUMM) 14.7 H RBC (4.70 - 6.10 /CUMM) 1.67 L Hgb (14.0 - 18.0 G/DL) 7.0 *L Hct (42 - 52 %) 19.8 *L MCV (80.0 - 94.0 FL) 118.7 H MCH (27.0 - 31.0 PG) 41.8 H RDW (11.5 - 14.5 %) 22.6 H Plt Count (130 - 400 /CUMM) 162 MPV (7.4 - 10.4 FL) 7.7 Gran % (42.2 - 75.2 %) 75.3 H Lymphocytes % (20.5 - 51.1 %) 8.5 L Monocytes % (1.7 - 9.3 %) 15.4 H Eosinophils % (0 - 5 %) 0.3 Basophils % (0.0 - 2.0 %) 0.5 Absolute Granulocytes (1.4 - 6.5 /CUMM) 11.1 H Absolute Lymphocytes (1.2 - 3.4 /CUMM) 1.2 Absolute Monocytes (0.10 - 0.60 /CUMM) 2.3 H Absolute Eosinophils (0.0 - 0.7 /CUMM) 0 Absolute Basophils (0.0 - 0.2 /CUMM) 0.1 PUBS MCHC (33.0 - 37.0 G/DL) 35.2 Serology HIV 1&2 Ab Western Blot (NONREACTIVE) NONREACTIVE Toxicology Serum Alcohol (<10 MG/DL) 90.0 Urines Urine Color Cancelled Urine Clarity Cancelled Urine pH Cancelled Ur Specific [place] Cancelled Urine Protein Cancelled Urine Ketones Cancelled Urine Nitrite Cancelled Urine Bilirubin Cancelled Urine Urobilinogen Cancelled Ur Leukocyte Esterase Cancelled Ur Microscopic Cancelled Urine Hemoglobin Cancelled Urine Glucose Cancelled Imaging/Other Studies: 06/27/2016: EKG- NSR @ 67, normal axis, normal intervals, NSST inferiorly. 06/27/2016: XR PORTABLE CHEST- Low lung volumes with bibasilar opacities, most likely related to subsegmental atelectasis. Superimposed pneumonia, especially in the right lung base cannot be entirely excluded but is felt to be less likely. Close clinical correlation is requested. 06/27/2016: US RETROPERITONEAL COMPLETE (RENAL)- 1. Left kidney suboptimally assessed. Overall, both kidneys appear unremarkable. 2. Bladder not seen. 3. Interval development of large volume ascites. (*? Liver & GB not imaged) 06/28/2016: XRY-HIP 1 VIEW, RIGHT (to assess femoral line)- A right femoral approach catheter courses superiorly at the level of the pelvis with its tip not well identified given the technique and rotation utilized for this exam. Consider a dedicated full frontal pelvic radiograph for more definitive assessment of catheter positioning. 06/28/2016: CT HEAD WITHOUT CONTRAST- This examination is not of diagnostic quality and cannot be interpreted accurately. Request has been made to repeat this study. Extra-axial hemorrhage cannot be excluded . The ventricles are normal in size and position with no mass effect or midline shift. 06/28/2016: CT OF THE CHEST ABDOMEN AND PELVIS W/O IV CONTRAST- Limited study as described. 1. Bibasilar lung consolidation and atelectasis, right greater than left, with probable small left pleural effusion. No pneumothorax. 2. 1 cm spiculated opacity in the right lung apex could be transient inflammatory focus but underlying pulmonary nodule is possible and follow-up chest CT when the patient is clinically stable is recommended. 3. Nodular density in the left subareolar soft tissues may represent asymmetric male gynecomastia. Correlate clinically. 4. Diffuse ascites 5. Hepatic steatosis 6. Moderately distended gallbladder with hyperattenuation of the wall. Subacute cholecystitis or be difficult to exclude. There is no stone or gallbladder wall edema appreciated. 7. Possible anterior left seventh and eighth rib fractures versus motion artifact. 8. Enlarged right and left lobes of the thyroid, possible goiter. This is incompletely imaged
[2016-06-28 10:58] LABS: PT 56.5 SEC (9.4-12.5); PTT 114 SEC (25-37)
--- NOTE | 2016-06-28 11:43 | Cons- Cardiology ---
General Information and HPI Consulting Request Date of Consult: 06/28/16 Requested By: LING CLINTON MD Reason for Consult: Cardiopulmonary arrest. Source of Information: old records Exam Limitations: unable to give history, not alert/orientated, clinical condition, physical impairment, intubated. History of Present Illness: Mr. Nahid Frost is a 41-year-old male with a history of obesity, hypertension, and long-standing alcohol use was last hospitalized here (03/29-) with alcoholic hepatitis, and suspected pancreatitis (elevated lipase, suggestive noncontrast CT), and nausea, vomiting, diarrhea which resolved and acute kidney injury which also resolved following volume resuscitation who was scheduled for outpatient gastroenterology follow-up for elective EGD, about the patient didn't follow-up and again resumed drinking alcohol (2-1/2 bottles of wine daily, occasional vodka) after one month of abstinence who presented to the ED via ambulance yesterday afternoon with a two-week history of jaundice and fatigue, borderline blood pressure and hypothermia (94/39 mmHg; 96.0) and the remainder of his vital signs normal range. Pertinent blood work includes: INR 5.47, PTT 114 sec, H/H 5.8/16.2, WBC 13.9, platelets 117 K, CO2 7, anion gap 23, lactic acid 15.4, markedly elevated LFTs, BUN/creatinine 27/5.2, sodium 131, potassium 4.8, magnesium 2.4, phosphorus 7.1, Neelima 192, troponin 0.01 The patient was in the ICU and while being moved in the bed to his side this morning suddenly became unresponsive with apnea, bradycardia that progressed to asystole and hypotension which prompted initiation of ACLS. According to the record he has no history of coronary, valvular, dysrhythmic/ conduction disease, or cardiomyopathy. Allergies/Medications Allergies: Coded Allergies: No Known Allergies (03/29/16) Home Med List: Fluoxetine HCl 40 MG CAPSULE 1 CAP PO QAM DIRECTED (Reported) Losartan/Hydrochlorothiazide (Losartan-Hctz 100-12.5 MG Tab) 100 MG-12.5 MG TABLET 1 TAB PO DAILY DIRECTED (Reported) Metoprolol Succ XL (Toprol Xl) 50 MG TAB 1 TAB PO DAILY BP (Reported) Review of Systems Review of Systems: Unobtainable, as patient intubated. Past History Travel History Traveled to [place] past 21 day No Medical History Blood Transfusion Hx: No Neurological: NONE EENT: NONE Cardiovascular: hypertension Respiratory: NONE Gastrointestinal: pancreatitis (possibly in 03/2016), umbilical hernia, NAUSEA AND VOMITIMG Hepatic: jaundice, ?ELEVATED LIVER ENZYMES Renal: resolved ARF in 03/2016, after hydration Musculoskeletal: NONE Psychiatric: alcohol dependence, depression Endocrine: obesity Blood Disorders: anemia, coagulopathy, thrombocytopenia (borderline) Cancer(s): NONE SCHOOL SERVICES OFFICER/Reproductive: 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 Age 59. MOTHER, Age 58. Psychosocial History Where Do You Live? Home (with ex- & stepson) Who Do You Live With? ex- & stepson Services at Home: None Primary Language: Telugu Smoking Status: Former Smoker ETOH Use: alcoholic Illicit Drug Use: denies illicit drug use Living Will? no Power of Yoke Presser/HCP? no Other Social History: . Lives with ex- & stepson. No biologic children. No cigarettes. No illicit drugs. EtOH abuse x 20 years, recently up to 2.5L wine daily, with occasional vodka. No IVDA. No tattoos. Unemployed. 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 Functional Ability ADLs Independent: dressing, eating, toileting, bathing. Ambulation: independent IADLs Independent: shopping, housework, finances, food prep, telephone, transportation , medication admin. 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 Exam & Diagnostic Data Vital Signs and I&O Vital Signs Date Time Temp Pulse Resp B/P Pulse O2 O2 Flow FiO2 Ox Delivery Rate 06/28 0745 85 18 70/42 06/28 0652 100 06/28 0600 84 22 100/42 06/28 0400 97.9 78 26 100/39 06/28 0400 97 Room Air 06/28 0200 97.2 75 24 101/53 06/28 0000 96.9 74 20 94/60 06/28 0000 100 Room Air 06/28 0000 96.9 74 20 94/60 100 Room Air 06/27 2316 97.2 68 20 106/46 06/276 97.2 68 20 113/52 100 Room Air 06/279 98.9 71 18 90/40 95 06/27 1920 96.0 74 18 100/46 06/27 1917 94 Room Air 06/27 191 96.0 74 18 100/46 94 Room Air 06/27 1746 96.5 67 18 90/40 94 Room Air 06/27 1601 96.6 74 18 118/58 96 Room Air 06/27 1514 64 18 103/47 95 Room Air 06/27 1432 96.0 69 12 94/39 95 Room Air Intake & Output 06/28 1600 06/28 0800 06/28 0000 06/27 1600 06/27 0800 06/27 0000 Intake Total 2213 2250 Output Total 11 0 Balance 2202 2250 Intake, Blood 795 100 Product Intake, IV 1418 2150 Intake, Oral 0 Number 2 Bowel Movements Output, Urine 11 0 Patient 320 lb 325 lb Weight Physical Exam: Well-developed, morbidly obese, jaundiced male who was intubated and unresponsive. Vital signs: See above. HEENT: Normocephalic, atraumatic, pupils fixed and dilated. Neck: No JVD, no bruits. Lungs: Clear to auscultation anteriorly. Heart: S1, S2 (difficult to hear) without any obvious murmur, gallop, or rub appreciated. PMI not well felt. Abdomen: Distended with decreased bowel sounds. Extremities: 2+ lower extremity edema. Labs/Jb Results: Laboratory Tests 06/28 06/28 0950 0950 Chemistry Sodium Pending Potassium Pending Chloride Pending Carbon Dioxide Pending Anion Gap Pending BUN Pending Creatinine Pending Glucose Pending Lactic Acid Pending Calcium Pending Phosphorus Pending Magnesium Pending Total Bilirubin Pending AST Pending ALT Pending Albumin Pending Coagulation PT Pending INR Pending APTT Pending Hematology CBC w Diff MAN DIFF ORDERED WBC (4.8 - 10.8 /CUMM) 13.9 H RBC (4.70 - 6.10 /CUMM) 1.38 L Hgb (14.0 - 18.0 G/DL) 5.8 *L Hct (42 - 52 %) 16.2 *L MCV (80.0 - 94.0 FL) 117.8 H MCH (27.0 - 31.0 PG) 41.7 H RDW (11.5 - 14.5 %) 27.4 H Plt Count (130 - 400 /CUMM) 117 L MPV (7.4 - 10.4 FL) 7.7 Gran % (42.2 - 75.2 %) 76.8 H Lymphocytes % (20.5 - 51.1 %) 12.3 L Monocytes % (1.7 - 9.3 %) 10.4 H Eosinophils % (0 - 5 %) 0.3 Basophils % (0.0 - 2.0 %) 0.2 Absolute Granulocytes (1.4 - 6.5 /CUMM) 10.6 H Segmented Neutrophils (42.2 - 75.2 %) 70 Band Neutrophils (0.0 - 5.0 %) 6 H Absolute Lymphocytes (1.2 - 3.4 /CUMM) 1.7 Lymphocytes (20.5 - 51.1 %) 13 L Monocytes (1.7 - 9.3 %) 6 Absolute Monocytes (0.10 - 0.60 /CUMM) 1.4 H Eosinophils (0 - 5.0 %) 2 Absolute Eosinophils (0.0 - 0.7 /CUMM) 0 Absolute Basophils (0.0 - 0.2 /CUMM) 0 Metamyelocytes (0.0 - 1.0 %) 2 H Myelocytes (0 - 0 %) 1 H Nucleated RBCs (0.0 - 0.0 /100WBC) 1 H Platelet Estimate (ADEQUATE) DECREASED Polychromasia 1+ Poikilocytosis 2+ Anisocytosis 2+ Macrocytic Cells 2+ Ovalocytes 1+ Gladys Cells 2+ PUBS MCHC (33.0 - 37.0 G/DL) 35.4 06/28 06/28 0925 0640 Blood Gas pH (7.35 - 7.45 PH) 6.95 *L pCO2 (35 - 45 TORR) 24 L pO2 (80 - 100 TORR) 169 H HCO3 (21 - 28 MEQ/L) 5.4 L ABG O2 Sat (Measured) (>96.0 %) 96.0 P-50 (Temp Corrected) Y Carboxyhemoglobin (1.5 - 5.0 %) 2.3 O2 Concentration % 100 Temperature (97.0 - 100.0 FARH) 94.4 L Respiration Rate (BPM) 18 O2 Delivery Method VENT Vent Mode AC Expiratory Pressure (CMH2O/P) 5 Tidal Volume (CC) 600 Chemistry Sodium (137 - 145 mmol/L) 131 L Potassium (3.5 - 5.1 mmol/L) 4.8 Chloride (98 - 107 mmol/L) 101 Carbon Dioxide (22 - 30 mmol/L) 7 *L Anion Gap (5 - 16) 23 H BUN (9 - 20 mg/dL) 27 H Creatinine (0.7 - 1.2 mg/dL) 5.2 *H Estimated GFR (>60 ml/min) 12 L BUN/Creatinine Ratio (7 - 25 %) 5.2 L Lactic Acid (0.7 - 2.1 mmol/L) 15.1 H Ammonia (9 - 30 umol/L) ND Troponin I (<0.11 ng/ml) 0.01 Miscellaneous Phlebotomy Draw Site LEFT RADIAL 06/28 06/28 0640 8726 Chemistry Sodium (137 - 145 mmol/L) 130 L Potassium (3.5 - 5.1 mmol/L) 4.8 Chloride (98 - 107 mmol/L) 99 Carbon Dioxide (22 - 30 mmol/L) 8 *L Anion Gap (5 - 16) 22 H BUN (9 - 20 mg/dL) 28 H Creatinine (0.7 - 1.2 mg/dL) 5.0 H Estimated GFR (>60 ml/min) 13 L Glucose (65 - 99 mg/dL) 53 L Calcium (8.4 - 10.2 mg/dL) 8.0 L Phosphorus (2.5 - 4.5 mg/dL) 7.1 H Magnesium (1.6 - 2.3 mg/dL) 2.4 H Total Bilirubin (0.2 - 1.3 mg/dL) 31.3 H AST (17 - 59 U/L) 421 H ALT (21 - 72 U/L) 148 H Ammonia (9 - 30 umol/L) 192 H Albumin (3.5 - 5.0 g/dL) 2.5 L Coagulation PT (9.4 - 12.5 SEC) 46.1 *H INR (0.90 - 1.17) 4.46 *H Hematology CBC w Diff MAN DIFF ORDERED NO MAN DIFF REQ WBC (4.8 - 10.8 /CUMM) 11.7 H 11.4 H RBC (4.70 - 6.10 /CUMM) 1.67 L 1.50 L Hgb (14.0 - 18.0 G/DL) 6.9 *L 6.1 *L Hct (42 - 52 %) 19.5 *L 17.5 *L MCV (80.0 - 94.0 FL) 117.1 H 117.2 H MCH (27.0 - 31.0 PG) 41.6 H 40.9 H RDW (11.5 - 14.5 %) 26.7 H 25.6 H Plt Count (130 - 400 /CUMM) 122 L 111 L MPV (7.4 - 10.4 FL) 7.9 7.0 L Gran % (42.2 - 75.2 %) 66.8 73.6 Lymphocytes % (20.5 - 51.1 %) 19.7 L 8.7 L Monocytes % (1.7 - 9.3 %) 12.9 H 17.3 H Eosinophils % (0 - 5 %) 0.1 0.1 Basophils % (0.0 - 2.0 %) 0.5 0.3 Absolute Granulocytes (1.4 - 6.5 /CUMM) 7.8 H 8.4 H Segmented Neutrophils (42.2 - 75.2 %) 66 Band Neutrophils (0.0 - 5.0 %) 4 Absolute Lymphocytes (1.2 - 3.4 /CUMM) 2.3 1.0 L Lymphocytes (20.5 - 51.1 %) 14 L Monocytes (1.7 - 9.3 %) 13 H Absolute Monocytes (0.10 - 0.60 /CUMM) 1.5 H 2.0 H Absolute Eosinophils (0.0 - 0.7 /CUMM) 0 0 Absolute Basophils (0.0 - 0.2 /CUMM) 0.1 0 Metamyelocytes (0.0 - 1.0 %) 2 H Myelocytes (0 - 0 %) 1 H Nucleated RBCs (0.0 - 0.0 /100WBC) 4 H Platelet Estimate (ADEQUATE) DECREASED Polychromasia 1+ Poikilocytosis 2+ Anisocytosis 2+ Macrocytic Cells 2+ Ovalocytes 1+ Mobile Cells 1+ PUBS MCHC (33.0 - 37.0 G/DL) 35.6 34.9 Serology Hepatitis A IgM Ab (NONREACTIVE) Pending Hep Bs Antigen (NONREACTIVE) Pending Hep B Core IgM Ab Conf (NONREACTIVE) Pending Hepatitis C Antibody (NONREACTIVE) Pending 06/28 06/27 06/27 06/27 0320 2100 1854 1854 Blood Gas Bicarbonate Actual (22 - 26 MEQ/L) 9 L Mixed VBG pH (7.31 - 7.41 PH) 7.24 L Mixed VBG pCO2 (41 - 51 TORR) 22 L Mixed VBG O2 Saturation (35 - 45 TORR) 46 H P-50 (Temp Corrected) N Carboxyhemoglobin (1.5 - 5.0 %) 4.2 O2 Concentration % 2L O2 Delivery Method N/C Chemistry Sodium Cancelled Potassium Cancelled Chloride Cancelled Carbon Dioxide Cancelled Anion Gap Cancelled BUN Cancelled Creatinine Cancelled BUN/Creatinine Ratio Cancelled Hematology CBC w Diff Cancelled WBC Cancelled RBC Cancelled Hgb Cancelled Hct Cancelled MCV Cancelled MCH Cancelled RDW Cancelled Plt Count Cancelled MPV Cancelled Lymphocytes (%) 8 % Normal PMNs (%) 19 PUBS MCHC Cancelled Miscellaneous Phlebotomy Draw Site TLC Other Body Source Fluid WBC (0 - 5 /CUMM) 150 H Fld Mesothelial Cells (%) 73 Fld Total RBCs Counted (0 /CUMM) 9400 H Fluid Glucose (mg/dL) 71 Fluid Total Protein (g/dL) < 2.0 Fluid Albumin (g/dL) < 1.0 Fluid LDH (U/L) 427 Fluid Amylase (U/L) < 30 06/27 06/27 1500 1446 Chemistry Sodium (137 - 145 mmol/L) 129 L Potassium (3.5 - 5.1 mmol/L) 4.1 Chloride (98 - 107 mmol/L) 97 L Carbon Dioxide (22 - 30 mmol/L) 12 L Anion Gap (5 - 16) 20 H BUN (9 - 20 mg/dL) 28 H Creatinine (0.7 - 1.2 mg/dL) 4.1 H Estimated GFR (>60 ml/min) 16 L BUN/Creatinine Ratio (7 - 25 %) 6.8 L Glucose (65 - 99 mg/dL) 73 Calcium (8.4 - 10.2 mg/dL) 8.2 L Iron (49 - 181 ug/dL) 72 TIBC (261 - 462 ug/dL) 131 L Ferritin (17.9 - 464 ng/mL) 6160.0 H Total Bilirubin (0.2 - 1.3 mg/dL) 32.3 H AST (17 - 59 U/L) 344 H ALT (21 - 72 U/L) 135 H Alkaline Phosphatase (< 127 U/L) 150 H Lactate Dehydrogenase (313 - 618 U/L) 1973 H Troponin I (<0.11 ng/ml) < 0.01 Total Protein (6.3 - 8.2 g/dL) 7.6 Albumin (3.5 - 5.0 g/dL) 2.5 L Globulin (1.9 - 4.2 gm/dL) 5.1 H Albumin/Globulin Ratio (1.1 - 2.2 %) 0.5 L Vitamin B12 (239 - 931 pg/mL) > 1000 H Folate (2.76 - 20.0 ng/mL) 2.2 L TSH (0.270 - 4.200 uIU/mL) 0.223 L Coagulation PT (9.4 - 12.5 SEC) 48.4 *H INR (0.90 - 1.17) 4.68 *H APTT (25 - 37 SEC) 79 H Hematology CBC w Diff NO MAN DIFF REQ WBC (4.8 - 10.8 /CUMM) 14.7 H RBC (4.70 - 6.10 /CUMM) 1.67 L Hgb (14.0 - 18.0 G/DL) 7.0 *L Hct (42 - 52 %) 19.8 *L MCV (80.0 - 94.0 FL) 118.7 H MCH (27.0 - 31.0 PG) 41.8 H RDW (11.5 - 14.5 %) 22.6 H Plt Count (130 - 400 /CUMM) 162 MPV (7.4 - 10.4 FL) 7.7 Gran % (42.2 - 75.2 %) 75.3 H Lymphocytes % (20.5 - 51.1 %) 8.5 L Monocytes % (1.7 - 9.3 %) 15.4 H Eosinophils % (0 - 5 %) 0.3 Basophils % (0.0 - 2.0 %) 0.5 Absolute Granulocytes (1.4 - 6.5 /CUMM) 11.1 H Absolute Lymphocytes (1.2 - 3.4 /CUMM) 1.2 Absolute Monocytes (0.10 - 0.60 /CUMM) 2.3 H Absolute Eosinophils (0.0 - 0.7 /CUMM) 0 Absolute Basophils (0.0 - 0.2 /CUMM) 0.1 PUBS MCHC (33.0 - 37.0 G/DL) 35.2 Serology HIV 1&2 Ab Western Blot (NONREACTIVE) NONREACTIVE Toxicology Serum Alcohol (<10 MG/DL) 90.0 Urines Urine Color Cancelled Urine Clarity Cancelled Urine pH Cancelled Ur Specific [place] Cancelled Urine Protein Cancelled Urine Ketones Cancelled Urine Nitrite Cancelled Urine Bilirubin Cancelled Urine Urobilinogen Cancelled Ur Leukocyte Esterase Cancelled Ur Microscopic Cancelled Urine Hemoglobin Cancelled Urine Glucose Cancelled Diagnostic Data EKG Results (06/28/26) sinus rhythm, early precordial transition, and minor nonspecific ST segment depression in diffuse leads. Faster rate and minor ST segment depression new from previous tracing (06/27/2016). CXR Results (06/27/2016): Low lung volumes with bibasilar opacities, most likely related to subsegmental atelectasis. Superimposed pneumonia, especially in the right lung base cannot be entirely excluded but is felt to be less likely. Close clinical correlation is requested. Other Results CT chest/abdomen/pelvis (06/28/2016): Limited study as described. 1. Bibasilar lung consolidation and atelectasis, right greater than left, with probable small left pleural effusion. No pneumothorax. 2. 1 cm spiculated opacity in the right lung apex could be transient inflammatory focus but underlying pulmonary nodule is possible and follow-up chest CT when the patient is clinically stable is recommended. 3. Nodular density in the left subareolar soft tissues may represent asymmetric male gynecomastia. Correlate clinically. 4. Diffuse ascites 5. Hepatic steatosis 6. Moderately distended gallbladder with hyperattenuation of the wall. Subacute cholecystitis or be difficult to exclude. There is no stone or gallbladder wall edema appreciated. 7. Possible anterior left seventh and eighth rib fractures versus motion artifact. 8. Enlarged right and left lobes of the thyroid, possible goiter. This is incompletely imaged. Head CT (06/28/2016): This examination is not of diagnostic quality and cannot be interpreted accurately. Request has been made to repeat this study. Extra-axial hemorrhage cannot be excluded . The ventricles are normal in size and position with no mass effect or midline shift. Assessment/Plan Assessment/Plan Cardiopulmonary arrest with pulseless electrical activity in this middle-aged male long-standing history of alcohol abuse that was likely on a multifactorial basis including, but not limited to: hypovolemia, coagulopathy, acute blood loss anemia, acute kidney injury, possible alcohol-induced cardiomyopathy, possible sepsis, etc. Recommendations: * Full supportive ICU care, mechanical ventilation, vasopressors (Levophed, Imtiaz- Synephrine, vasopressin), transfusion of packed red blood cells, volume resuscitation with aim for mean arterial pressure of 65 mmHg, broad-spectrum antimicrobial therapy, etc. * Follow-up troponins, follow-up electrocardiograms. * Echocardiogram to assess left ventricular function. * Follow-up on recommendations from critical care medicine, gastroenterology, nephrology, etc. * Mechanical DVT prophylaxis Consult Acknowledgment - Thank you for your consult request.
--- NOTE | 2016-06-28 12:50 | Event Note ---
Event Note Event Note: after discussion with family including mother, father and brothers was held. Prognosis grim, pupils fixed/dilated that was done by Dr. Benjamin, the family decide to change the CODE STATUS to DNI DNR. So the p.t was Extubated after the patient was seen by . will hold all the management and patient was provided with IV morphine and Ativan. Patient was examined and pronounced at 1:11 PM by . cigarette package examiner office was notified as the of care within 24 hours of admission.
--- NOTE | 2016-06-28 14:30 | Discharge Summary ---
Visit Information Visit Dates Admission Date: 06/27/16 Discharge Date: 06/28/16 Hospital Course Course Attending Physician: OZ GALVAN,LING Castro Primary Care Physician: SILVER NO Consulting Request: 1 Consulting Specialty: Gastroenterology Consulting Physician: Mic Buck MD Reason for Consult: Jaundice and coffee ground vomitus, in a patient with alcohol abuse Consulting Request: 2 Consulting Specialty: Cardiology Consulting Physician: Dwayne Puente MD Reason for Consult: Cardiopulmonary arrest Hospital Course: Mr. Frost is a 41 y/o M with PMHx of obesity, HTN and long-standing alcohol abuse, recently admitted to [facility] in March 2016 with alcoholic hepatitis and questionable pancreatitis who was BIBA to the ED on 06/27/16 after an episode of coffee-ground emesis, preceded by 2-week history of lethargy, jaundice and nausea/vomiting. Of note, patient had abstained from alcohol for 1 month following his discharge from [facility] but had restarted drinking, consuming up to 2.5 L of wine daily as well as occasional vodka. Of note his last drink was on the night prior to his current presentation. On initial presentation in the ED, his vitals were remarkable for hypotension to 94/39, which later improved after receiving normal saline bolus. He was AAO x 3 and in no acute distress. Physical exam was remarkable for stigmata of liver disease including jaundice, marked ascites, palmar erythema, spider nevi and bruises. Guaiac positive stool was noted on rectal exam. Labs were significant for H/H 7.0/19.8, WBC 14.7, platelets 162, Na 129, bicarbonate 12, anion gap 20, BUN/Cr 28/4.1, total bilirubin 32.3, AST 344, ALT 135, alkaline phosphatase 150, LDH 1973 and INR 4.68. Serum alcohol was elevated at 90. Gastroenterology was consulted and patient was started on IV octreotide and Protonix drips for suspected upper GI bleed 2/2 to esophageal varices. Diagnostic paracentesis was performed to rule out SBP and patient was subsequently admitted to the ICU for close hemodynamic monitoring in the setting of impending hepatic failure and coagulopathy. Patient received 1 unit of pRBCs, 2 units of FFP and vitamin K overnight with plans for possible EGD following clinical stabilization. However around 6 AM in the morning, patient suddenly became unresponsive with bradycardia and apnea which progressed to cardiopulmonary arrest. ACLS was initiated and patient was intubated and placed on mechanical ventilation. Patient regained ROSC after 16 minutes of active code but remained unresponsive with fixed and dilated pupils post code. Following the code, patient's clinical condition deteriorated rapidly , despite receiving supportive therapy, with multisystem organ failure including hypovolemic shock requiring three pressors, worsening anemia, coagulopathy, acute renal failure, acidosis and severe electrolyte disturbances. After long and extensive discussions with with the medical team, decision was made to extubate the patient after being seen by a refrigeration installer, given his extremely guarded prognosis based on his neurologic exam suggestive of substantial anoxic injury superimposed on his liver and kidney failure. Patient was terminally extubated and subsequently pronounced at 1:11 PM. Allergies: Coded Allergies: No Known Allergies (03/29/16) Significant Procedures: Diagnostic paracentesis Central line placement Intubation Disposition Summary Disposition Principal Diagnosis: Acute liver failure Additional Diagnosis: Alcoholic cirrhosis Acute kidney failure Acute blood loss anemia secondary to upper GI bleed Multisystem organ failure Cardiopulmonary arrest Hypovolemic shock Presumed anoxic brain injury Discharge Disposition: Discharge Instructions General Discharge Information Code Status: Do Not Resucitate/Intubat () Patient's Diet: N/A Patient's Activity: N/A Follow-Up Instructions/Appts: N/A Copies To: SHERLYN GALVAN,BELL; SILVER NO
== END 2016-06-28 13:11 | disposition expired | DRG 433 ==
LOC: ENRESERVDT → ENRESERVTM → ERH 14:29 → CRI 16:37 → ERHI 16:37 → CRI 22:49
PROVIDERS: Emergency Medicine; Internal Medicine Cardiovascular Disease; Internal Medicine Hematology & Oncology; Student in an Organized Health Care Education/Training Program; ADMIT Internal Medicine
PROC: 0W9G3ZX Drainage of Peritoneal Cavity, Percutaneous Approach, Diagnostic (ICD-10-PCS; 2016-06-27)
PROC: 0BH17EZ Insertion of Endotracheal Airway into Trachea, Via Natural or Artificial Opening (ICD-10-PCS; 2016-06-27)
PROC: 5A1935Z Respiratory Ventilation, Less than 24 Consecutive Hours (ICD-10-PCS; 2016-06-27)
PROC: 30233N1 Transfusion of Nonautologous Red Blood Cells into Peripheral Vein, Percutaneous Approach (ICD-10-PCS; principal; 2016-06-28)
PROC: 05HM33Z Insertion of Infusion Device into Right Internal Jugular Vein, Percutaneous Approach (ICD-10-PCS; 2016-06-28)
PROC: B543ZZA Ultrasonography of Right Jugular Veins, Guidance (ICD-10-PCS; 2016-06-28)
DX: K70.31 Alcoholic cirrhosis of liver with ascites (principal); Z68.41 Body mass index [BMI] 40.0-44.9, adult; N17.9 Acute kidney failure, unspecified; K72.90 Hepatic failure, unspecified without coma; F10.20 Alcohol dependence, uncomplicated; D50.0 Iron deficiency anemia secondary to blood loss (chronic); I10 Essential (primary) hypertension; Y90.4 Blood alcohol level of 80-99 mg/100 ml; Z66 Do not resuscitate; E66.9 Obesity, unspecified; Z87.891 Personal history of nicotine dependence; I46.9 Cardiac arrest, cause unspecified
CPT/HCPCS: 84133; 84300; 87075; CCU; 36415; 73501; 74176; 76775; 82436; 82570; 86920; 87040; 87086; 87389; 88305; 93005; 93010; 94799; 96361; 96372; 96374; 96375; 96376; 99291; G0480; J0696; J0713; J2270; J2354; J2405; J3250; J3370; J3490; J7040; J7060; P9016; P9017; P9047